=== PATIENT | male | born 1940 | race Caucasian/White ===

== ENCOUNTER 2020-05-16 16:45 | Inpatient (IN) | payer MEDICARE, BC ==
[2020-05-16] MEDS ORDERED: HYDROmorphone 0.5 MG/0.5 ML Syringe IVPUSH PRN (17:41)
[2020-05-16] MEDS ORDERED: Ondansetron 4 MG Tab.DIS PO PRN (17:41)
--- NOTE | 2020-05-16 17:46 | PCM.HP.2 ---
H&P History of Present Illness - General Date of Service: 05/16/20 Admit Problem/Dx: Admission Diagnosis/Problem Admission Diagnosis/Problem Cellulitis of right foot Source of Information: Patient, Provider History Limitations: Reports: No Limitations - History of Present Illness Initial Comments - Free Text/Narative: CC: I thought I had COVID HPI: Regis who was transferred from the emergency room in [place] to our hospital for direct admission and management of right lower extremity cellulitis and possibly osteomyelitis. He reports several days of progressive decrease in energy and appetite as well as increasing redness, pain and swelling of his right foot. He has had temperatures as high as 102 degrees at home and has had some shaking chills. He does report sinus drainage which causes him to cough occasionally. He does not feel short of breath and has not had chest pain. No change in bowel or bladder habits. He has not been eating or drinking well the past few days. He is not aware of any injury to his foot. He is complaining of intermittent sharp and severe stabbing pains that shoot through his foot. They seem to come and go without any obvious trigger. He is tried a variety of home remedies which have not helped the pain very much. Pain has been getting worse over the past several days. He does not have any known exposure to COVID but has been frequenting establishments where folks are not wearing masks. In the emergency room in [place] he was noted to have a white blood cell count of 19,000 as well as an elevated procalcitonin and a very elevated CRP. Chest x-ray was clear and COVID19 testing was negative. X-ray of the right foot showed some possible inflammatory or potentially infectious/osteomyelitis changes at the first MTP. IV antibiotics were initiated and the patient was transferred here for further management because they were at capacity. - Related Data Allergies/Adverse Reactions: Allergies Allergy/AdvReac Type Severity Reaction Status Date / Time Penicillins Allergy Itching Verified 05/16/20 16:53 Sulfa (Sulfonamide Allergy Itching Verified 05/16/20 16:53 Antibiotics) Home Medications: Home Meds Amitriptyline [Elavil] 25 mg PO BEDTIME 05/16/20 [History] Apixaban [Eliquis] 5 mg PO BID 05/16/20 [History] Gabapentin [Neurontin] 600 mg PO TID 05/16/20 [History] Red Yeast Rice 1,200 mg PO BID 05/16/20 [History] lisinopriL [Lisinopril] 10 mg PO BEDTIME 05/16/20 [History] metFORMIN [Glucophage XR] 1,000 mg PO BID 05/16/20 [History] Past Medical History Musculoskeletal History: Reports: Other (See Below) Other Musculoskeletal History: osteomyelitis Neurological History: Reports: Neuropathy, Diabetic Endocrine/Metabolic History: Reports: Diabetes, Type II Dermatologic History: Reports: Cellulitis - Past Surgical History HEENT Surgical History: Reports: Naso-Sinus Surgery Endocrine Surgical History: Reports: None Neurological Surgical History: Reports: None Dermatological Surgical History: Reports: None Social & Family History - Family History Family Medical History: Noncontributory - Tobacco Use Smoking Status *Q: Former Smoker Years of Tobacco use: 22 Used Tobacco, but Quit: Yes Month/Year Tobacco Last Used: 1970 Second Hand Smoke Exposure: No - Caffeine Use Caffeine Use: Reports: Coffee - Alcohol Use Number of Drinks Per Day: 0 - Recreational Drug Use Recreational Drug Use: No H&P Review of Systems - Review of Systems: Review Of Systems: See Below Free Text/Narrative: A complete 12 point review of systems was obtained. Pertinent positives and negatives are noted in the history of present illness. All other systems were reviewed and were negative except as noted. Exam - Exam Exam: See Below - Vital Signs Vital Signs: Last Vital Signs Temp 37.7 C 05/16/20 16:52 Pulse 88 05/16/20 16:52 Resp 18 05/16/20 16:52 BP 136/69 05/16/20 16:52 Pulse Ox 96 05/16/20 16:52 Weight: 101.605 kg - Exam Quality Assessment: No: Supplemental Oxygen General: Alert, Oriented, Cooperative. No: Mild Distress HEENT: Conjunctiva Clear. No: Mucosa Moist & [place] (dry), Scleral Icterus Neck: Supple, Trachea Midline Lungs: Clear to Auscultation, Normal Respiratory Effort Cardiovascular: Regular Rate, Regular Rhythm, Systolic Murmur GI/Abdominal Exam: Normal Bowel Sounds, Soft, Non-Tender, No Distention, Other (Ventral hernia) Back Exam: Normal Inspection, Full Range of Motion Extremities: No Pedal Edema (Of the left foot), Pedal Edema (Of the right foot), Increased Warmth (Right foot and right lower leg from about mid garza distally) Peripheral Pulses: 1+: Dorsalis Pedis (R), 2+: Dorsalis Pedis (L) Skin: Warm, Dry, Rash (Significant erythema over the top of the right foot extending onto the right great toe. Redness does extend up the distal lower leg onto the lower garza), Other (There is an area of fluctuance and possibly an underlying abscess between the first and second toes on the dorsal aspect of the foot) Neuro Extensive - Mental Status: Alert, Oriented x3, Nl Response to Commands Neuro Extensive - Motor, Sensory, Reflexes: No: Dysarthria, Abnormal Motor, Tremor Psychiatric: Alert, Normal Affect - Patient Data Imaging Impressions Last 24 hrs: Chest x-ray-clear X-ray of the right foot-possible inflammatory/erosive changes at the first MTP Sepsis Event Note - Evaluation Sepsis Screening Result: No Definite Risk - Focused Exam Vital Signs: Vital Signs Temp Pulse Resp BP Pulse Ox 05/16/20 16:52 37.7 C 88 18 136/69 96 *Q Meaningful Use (ADM) - VTE Risk Assess *Q Each Risk Factor Represents 1 Point: Obesity ( BMI > 25 kg/m2), Sepsis Total Score 1 Point Risk Factors: 2 Each Risk Factor Represents 2 Points: None Total Score 2 Point Risk Factors: 0 Each Risk Factor Represents 3 Points: Age 75 Years or Greater Total Score 3 Point Risk Factors: 3 Each Risk Factor Represents 5 Points: None Total Score 5 Point Risk Factors: 0 Venous Thromboembolism Risk Factor Score *Q: 5 - Problem List (1) Cellulitis of foot, right SNOMED Code(s): 870927718 ICD Code: L03.115 - CELLULITIS OF RIGHT LOWER LIMB Status: Acute Current Visit: Yes (2) Sepsis SNOMED Code(s): 31717802 ICD Code: A41.9 - SEPSIS, UNSPECIFIED ORGANISM Status: Acute Current Visit: Yes Qualifiers: Sepsis type: sepsis due to unspecified organism Sepsis acute organ dysfunction status: without acute organ dysfunction Qualified Code(s): A41.9 - Sepsis, unspecified organism (3) Type 2 diabetes mellitus SNOMED Code(s): 20943112 ICD Code: E11.9 - TYPE 2 DIABETES MELLITUS WITHOUT COMPLICATIONS Status: Chronic Current Visit: Yes Qualifiers: Diabetes mellitus predatory animal exterminator insulin use: without predatory animal exterminator use Diabetes mellitus complication status: with neurologic complications Diabetes mellitus complication detail: with polyneuropathy Qualified Code(s): E11.42 - Type 2 diabetes mellitus with diabetic polyneuropathy (4) Chronic atrial fibrillation SNOMED Code(s): 263137754 ICD Code: I48.20 - CHRONIC ATRIAL FIBRILLATION, UNSPECIFIED Status: Chronic Current Visit: Yes Problem List Initiated/Reviewed/Updated: Yes Orders Last 24hrs: Active Orders 24 hr Category Date Time Status Patient Status [ADT] Routine ADT 05/16/20 17:41 Ordered Communication Order [RC] PRN Care 05/16/20 17:45 Ordered Communication Order [RC] PRN Care 05/16/20 17:45 Ordered Diabetes Education [RC] Click to Edit Care 05/16/20 17:45 Ordered Intake and Output [RC] QSHIFT Care 05/16/20 17:41 Ordered Notify Provider Vital Signs [RC] ASDIRECTED Care 05/16/20 17:41 Ordered Notify Provider [RC] PRN Care 05/16/20 17:45 Ordered Oxygen Therapy [RC] PRN Care 05/16/20 17:41 Ordered Up With Assistance [RC] ASDIRECTED Care 05/16/20 17:41 Ordered VTE/DVT Education [RC] Per Unit Routine Care 05/16/20 17:41 Ordered Vital Signs [RC] Q4H Care 05/16/20 17:41 Ordered Consistent Carbohydrate Diet [DIET] Diet 05/16/20 Dinner Ordered Foot wo Cont Rt [MR] Routine Exams 05/17/20 07:00 Ordered BASIC METABOLIC PANEL,BMP [CHEM] AM Lab 05/17/20 05:11 Ordered CBC W/O DIFF,HEMOGRAM [HEME] AM Lab 05/17/20 05:11 Ordered GLUCOSE POC LAB TO COLLECT JPM [POC] QIDACANDBED Lab 05/16/20 21:00 Ordered GLUCOSE POC LAB TO COLLECT JPM [POC] QIDACANDBED Lab 05/17/20 07:30 Ordered GLUCOSE POC LAB TO COLLECT JPM [POC] QIDACANDBED Lab 05/17/20 11:30 Ordered GLUCOSE POC LAB TO COLLECT JPM [POC] QIDACANDBED Lab 05/17/20 16:30 Ordered GLUCOSE POC LAB TO COLLECT JPM [POC] QIDACANDBED Lab 05/17/20 21:00 Ordered GLUCOSE POC LAB TO COLLECT JPM [POC] QIDACANDBED Lab 05/18/20 07:30 Ordered GLUCOSE POC LAB TO COLLECT JPM [POC] QIDACANDBED Lab 05/18/20 11:30 Ordered GLUCOSE POC LAB TO COLLECT JPM [POC] QIDACANDBED Lab 05/18/20 16:30 Ordered GLUCOSE POC LAB TO COLLECT JPM [POC] QIDACANDBED Lab 05/18/20 21:00 Ordered GLUCOSE POC LAB TO COLLECT JPM [POC] QIDACANDBED Lab 05/19/20 07:30 Ordered GLUCOSE POC LAB TO COLLECT JPM [POC] QIDACANDBED Lab 05/19/20 11:30 Ordered GLUCOSE POC LAB TO COLLECT JPM [POC] QIDACANDBED Lab 05/19/20 16:30 Ordered GLUCOSE POC LAB TO COLLECT JPM [POC] QIDACANDBED Lab 05/19/20 21:00 Ordered GLUCOSE POC LAB TO COLLECT JPM [POC] QIDACANDBED Lab 05/20/20 07:30 Ordered GLUCOSE POC LAB TO COLLECT JPM [POC] QIDACANDBED Lab 05/20/20 11:30 Ordered GLUCOSE POC LAB TO COLLECT JPM [POC] QIDACANDBED Lab 05/20/20 16:30 Ordered GLUCOSE POC LAB TO COLLECT JPM [POC] QIDACANDBED Lab 05/20/20 21:00 Ordered GLUCOSE POC LAB TO COLLECT JPM [POC] QIDACANDBED Lab 05/21/20 07:30 Ordered GLUCOSE POC LAB TO COLLECT JPM [POC] QIDACANDBED Lab 05/21/20 11:30 Ordered GLUCOSE POC LAB TO COLLECT JPM [POC] QIDACANDBED Lab 05/21/20 16:30 Ordered GLUCOSE POC LAB TO COLLECT JPM [POC] QIDACANDBED Lab 05/21/20 21:00 Ordered GLUCOSE POC LAB TO COLLECT JPM [POC] QIDACANDBED Lab 05/22/20 07:30 Ordered GLUCOSE POC LAB TO COLLECT JPM [POC] QIDACANDBED Lab 05/22/20 11:30 Ordered GLUCOSE POC LAB TO COLLECT JPM [POC] QIDACANDBED Lab 05/22/20 16:30 Ordered Acetaminophen [TylenoL] Med 05/16/20 17:41 Ordered 650 mg PO Q4H PRN Amitriptyline [Elavil] Med 05/16/20 21:00 Ordered 25 mg PO BEDTIME Apixaban [Eliquis] Med 05/16/20 21:00 Ordered 5 mg PO BID Docusate Sodium/Sennosides [Senna Plus] Med 05/16/20 17:41 Ordered 1 tab PO BID PRN Gabapentin [Neurontin] Med 05/16/20 21:00 Ordered 600 mg PO TID HYDROmorphone [Dilaudid] Med 05/16/20 17:41 Ordered 0.5 mg IVPUSH Q2H PRN Insulin Lispro [HumaLOG] Med 05/16/20 20:00 Ordered See Protocol SUBCUT QIDACANDBED LORazepam [Ativan] Med 05/16/20 17:41 Ordered 0.5 mg IVPUSH Q4H PRN Lactobacillus Rhamnosus GG [Culturelle] Med 05/16/20 21:00 Ordered 1 cap PO BID Magnesium Hydroxide [Milk of Magnesia] Med 05/16/20 17:41 Ordered 30 ml PO Q12H PRN Ondansetron [Zofran ODT] Med 05/16/20 17:41 Ordered 4 mg PO Q6H PRN Ondansetron [Zofran] Med 05/16/20 17:41 Ordered 4 mg IV Q6H PRN Sodium Chloride 0.9% [Normal Saline] 1,000 ml Med 05/16/20 17:45 Ordered IV ASDIRECTED Vancomycin 1.5 gm Med 05/17/20 02:00 Ordered Sodium Chloride 0.9% [Normal Saline] 250 ml IV Q12H cefTAZidime Pentahydrate [Fortaz] 1 gm Med 05/16/20 22:00 Ordered Sodium Chloride 0.9% [Normal Saline] 50 ml IV Q8HR lisinopriL [Prinivil] Med 05/16/20 21:00 Ordered 10 mg PO BEDTIME metFORMIN [Glucophage XR] Med 05/16/20 21:00 Ordered 1,000 mg PO BID oxyCODONE Med 05/16/20 17:41 Ordered 5 - 10 mg PO Q4H PRN Resuscitation Status Routine Resus Stat 05/16/20 17:41 Ordered Assessment/Plan Comment:: ASSESSMENT AND PLAN - Cellulitis of the right foot-he may have an underlying abscess on the dorsal aspect of the foot between the first and second toe. X-ray at the outside emergency room possibly suggested underlying osteomyelitis. He has significant leukocytosis and did have evidence for early sepsis in [place] including tachycardia. He has responded to fluids and has received antibiotics. -Antibiotic coverage with ceftazidime and vancomycin -MRI of the right foot in the morning -Surgical consultation with Dr. Lora for evaluation of the possible abscess -Gentle fluids overnight -Pain control Type 2 diabetes mellitus-he did have some hyperglycemia on arrival to the emergency room. He is on only metformin. -Continue home medications -Low-dose sliding scale insulin with his hyperglycemia probably related to the infection Chronic atrial fibrillation-currently rate controlled. -Continue rate control and systemic anticoagulation Maintenance issues - - DVT prophylaxis -apixaban - GI prophylaxis -not indicated - Nutrition -consistent carbohydrates - Junior catheter -not indicated CODE STATUS -full code Admission justification -this patient will be admitted for inpatient services and is medically appropriate meeting medical necessity for inpatient admission as outlined in my documentation. I reasonably expect the patient will require inpatient services that span a period time over 2 midnights. I reasonably expect this patient to be discharged or transferred within 96 hours [facility]. Disposition -I would anticipate discharge home after the hospital stay Primary care physician - Dr Vero Figueredo M.D. - Mortality Measure Prognosis:: Good
[2020-05-16] MEDS: Sodium Chloride 0.9% 1,000 ML IV SCH (18:09)
[2020-05-16] MEDS: Acetaminophen 325 MG Tab PO PRN (19:36)
[2020-05-16] MEDS: oxyCODONE 5 MG Tab PO PRN (19:37)
[2020-05-16] MEDS: Gabapentin 300 MG Cap PO SCH (22:19)
[2020-05-16] MEDS: metFORMIN 500 MG Tab PO SCH (22:20)
[2020-05-16] MEDS: Lactobacillus Rhamnosus GG (Probiotic) Cap PO SCH (22:21)
[2020-05-16] MEDS: Apixaban 5 MG Tab PO SCH (22:21)
[2020-05-16] MEDS: Insulin Lispro 100 Unit/ML 3 ML KwikPen SUBCUT SCH (22:25)
[2020-05-16] MEDS: Lisinopril 10 MG Tab PO SCH (22:48)
[2020-05-16] MEDS: Amitriptyline 25 MG Tab PO SCH (22:48)
[2020-05-17] MEDS: Sodium Chloride 0.9% 1,000 ML IV SCH (05:42)
[2020-05-17] MEDS: Acetaminophen 325 MG Tab PO PRN ×3 (06:12→17:47)
[2020-05-17] MEDS: Gabapentin 300 MG Cap PO SCH ×3 (08:00→21:22)
[2020-05-17] MEDS: metFORMIN 500 MG Tab PO SCH ×2 (08:34→21:22)
[2020-05-17] MEDS: Apixaban 5 MG Tab PO SCH ×2 (08:34→21:22)
[2020-05-17] MEDS: Lactobacillus Rhamnosus GG (Probiotic) Cap PO SCH ×2 (08:34→21:22)
[2020-05-17] MEDS: Insulin Lispro 100 Unit/ML 3 ML KwikPen SUBCUT SCH ×4 (08:35→21:22)
[2020-05-17] MEDS ORDERED: Lidocaine 1% 20 ML MDV INJECT ONE (09:00)
[2020-05-17] MEDS ORDERED: Gadoteridol 279.3 MG/ML 20 ML SDV IV SCH (10:00)
[2020-05-17] MEDS: Magnesium Hydroxide 400 MG/5 ML Susp 30 ML Cup PO PRN (10:57)
[2020-05-17] MEDS: oxyCODONE 5 MG Tab PO PRN (11:41)
--- NOTE | 2020-05-17 12:54 | OR ---
DATE OF PROCEDURE: 05/17/2020 SURGEON: Alvaro Lora MD PROCEDURE: Incision and drainage of fluid collection, right foot between toes 1 and 2 in the web space. COMPLICATIONS: None. DOG LICENSE OFFICER SUPERVISOR: None. ANESTHETIC: Local lidocaine without epinephrine. RISKS: Risks, benefits, alternatives, and limitations including, but not limited to infection, bleeding, along with cellulitis and sepsis. PROCEDURE IN DETAIL: The patient was placed in supine position. The area of fluctuance was identified. This was anesthetized with 1% lidocaine and was opened using an 11 blade and subsequent [place]is clamp. Clear thick fluid was noted consistent with pustulant material, however, this was cultured and removed. This was then sent for culture. Quarter-inch iodoform packing was then placed. Dressings were applied. The patient tolerated the procedure well. Alvaro Lora MD /[id number]
--- NOTE | 2020-05-17 13:46 | CONS ---
DATE OF SERVICE: 05/17/2020 REFERRING PHYSICIAN: CONSULTING PHYSICIAN: Alvaro Lora MD REASON FOR CONSULTATION: Right foot infection. HISTORY OF PRESENT ILLNESS: This is a gentleman who was transferred from [place] yesterday and admitted to the hospitalist service. The concern at this time is cellulitis of the right lower leg. The patient has been febrile with up to 102 degrees. No nausea or vomiting. He is a known diabetic. He also had an elevated CRP and elevated white blood cell count. The patient is currently on vancomycin. PAST MEDICAL HISTORY: Type 2 diabetes, neuropathy, history of osteomyelitis. He is a remote smoker but not currently smoking. REVIEW OF SYSTEMS: GENERAL: The patient is appropriate for condition. HEENT: He is hard of hearing. CARDIOVASCULAR: Regular rhythm and rate. RESPIRATORY: Lungs clear to auscultation bilaterally. ABDOMEN: Obese. EXTREMITIES: Reports pain of right foot. NEUROLOGIC: no issues. PSYCHIATRIC: No issues. The remainder of systems were reviewed and is negative. SOCIAL HISTORY: He is not a smoker as described above. PHYSICAL EXAMINATION: GENERAL: The patient is resting comfortably. VITAL SIGNS: Temperature 99.9, blood pressure 117/62, pulse 73, respirations 18. HEENT: Pupils are equal. NECK: Supple. LUNGS: Clear. ABDOMEN: Obese. EXTREMITIES: Right lower extremity shows inflammation and erythema concerning for infection. IMAGING DATA: I did review this and MRI is also still pending. ASSESSMENT: Cellulitis, right foot. PLAN: Continue IV antibiotics. We will incise and drain the fluctuant area between the toes #1 and #2 and send for culture. Alvaro Lora MD /[id number]
--- NOTE | 2020-05-17 13:57 | CRLMR ---
HISTORY: Right foot swelling and redness. Concern for osteomyelitis of the great toe. TECHNIQUE: Axial, sagittal and coronal T1, T2 fat-sat and T1 postcontrast images with fat saturation were acquired. COMPARISON: No prior. FINDINGS: There is generalized soft tissue edema involving the foot. Increased enhancement is noted involving portions of the forefoot compatible with cellulitis. There is no well-defined fluid collection specific for a soft tissue abscess. No osteomyelitis. There are degenerative changes of the 1st metatarsophalangeal joint. Degenerative arthrosis of the navicular cuneiform and several tarsal - metatarsal articulations. There are areas of subchondral marrow edema cystic change related to full-thickness grade 4 cartilage loss. Small amount of fluid within the intermetatarsal bursae. The plantar aponeurosis at the forefoot level is intact. No Gooden`s neuroma. IMPRESSION: 1. Areas of increased enhancement involving the forefoot compatible with cellulitis. 2. No well-defined soft tissue fluid collection. 3. No osteomyelitis. 4. Degenerative changes. Dictated by Arturo Olivares MD @ May 17 2020 1:51PM Signed by Dr. Arturo Olivares @ May 17 2020 1:55PM
--- NOTE | 2020-05-17 14:45 | PCM.PN ---
- General Info Date of Service: 05/17/20 Subjective Update: No acute events overnight. Patient did have a fever to 102. Foot is feeling a little better with less pain and less swelling. Heart rate has been in the normal range. The fluid collection on the bottom of his foot did spontaneously rupture this morning with drainage of bloody and some purulent material. It was further debrided by Dr. Lora and iodoform gauze was packed in there. A sample was sent for culture. Overall he is feeling better today. We did get an MRI which did not show any evidence for osteomyelitis. White count is slightly better today. Functional Status: Reports: Pain Controlled, Tolerating Diet - Review of Systems General: Reports: Fever Musculoskeletal: Reports: Foot Pain - Patient Data Vitals - Most Recent: Last Vital Signs Temp 36.9 C 05/17/20 12:11 Pulse 70 05/17/20 11:00 Resp 16 05/17/20 11:00 BP 129/59 L 05/17/20 11:00 Pulse Ox 94 L 05/17/20 11:00 Weight - Most Recent: 101.605 kg I&O - Last 24 Hours: Intake & Output 05/16/20 05/17/20 05/17/20 22:59 06:59 14:59 Intake Total 1596 360 Balance 1596 360 Lab Results Last 24 Hours: Laboratory Results - last 24 hr 05/16/20 05/17/20 05/17/20 Range/Units 21:00 05:35 05:35 WBC 16.7 H (4.5-11.0) K/uL RBC 4.36 (4.30-5.90) M/uL Hgb 12.4 (12.0-15.0) g/dL Hct 38.5 L (40.0-54.0) % MCV 88 (80-98) fL MCH 28 (27-31) pg MCHC 32 (32-36) % Plt Count 148 L (150-400) K/uL Sodium 135 L (140-148) mmol/L Potassium 4.3 (3.6-5.2) mmol/L Chloride 100 (100-108) mmol/L Carbon Dioxide 25 (21-32) mmol/L Anion Gap 14.3 H (5.0-14.0) mmol/L BUN 21 H (7-18) mg/dL Creatinine 1.2 (0.8-1.3) mg/dL Est Cr Clr Drug Dosing 53.16 mL/min Estimated GFR (MDRD) 58 L (>60) Glucose 189 H (74-106) mg/dL POC Glucose 238 H (74-106) MG/DL Calcium 8.5 (8.5-10.1) mg/dL 05/17/20 05/17/20 Range/Units 07:50 11:45 WBC (4.5-11.0) K/uL RBC (4.30-5.90) M/uL Hgb (12.0-15.0) g/dL Hct (40.0-54.0) % MCV (80-98) fL MCH (27-31) pg MCHC (32-36) % Plt Count (150-400) K/uL Sodium (140-148) mmol/L Potassium (3.6-5.2) mmol/L Chloride (100-108) mmol/L Carbon Dioxide (21-32) mmol/L Anion Gap (5.0-14.0) mmol/L BUN (7-18) mg/dL Creatinine (0.8-1.3) mg/dL Est Cr Clr Drug Dosing mL/min Estimated GFR (MDRD) (>60) Glucose (74-106) mg/dL POC Glucose 213 H 214 H (74-106) MG/DL Calcium (8.5-10.1) mg/dL Kenneth Results Last 24 Hours: Microbiology 05/17/20 09:37 Gram Stain - Final Foot, Right Med Orders - Current: Current Medications Acetaminophen (Tylenol) 650 mg PO Q4H PRN PRN Reason: Pain (Mild 1-3)/fever Last Admin: 05/17/20 11:41 Dose: 650 mg Documented by: Amitriptyline HCl (Elavil) 25 mg PO BEDTIME [facility] Last Admin: 05/16/20 22:48 Dose: 25 mg Documented by: Apixaban (Eliquis) 5 mg PO BID [facility] Last Admin: 05/17/20 08:34 Dose: 5 mg Documented by: Gabapentin (Neurontin) 600 mg PO TID [facility] Last Admin: 05/17/20 13:28 Dose: 600 mg Documented by: Gadoteridol (Prohance) 20 ml IV . DIRECTED [facility] Stop: 05/17/20 18:00 Last Admin: 05/17/20 10:10 Dose: 20 ml Documented by: Hydromorphone HCl (Dilaudid) 0.5 mg IVPUSH Q2H PRN PRN Reason: Pain (severe 7-10) Ceftazidime 1 gm/ Sodium (Chloride) 50 mls @ 100 mls/hr IV Q8HR [facility] Last Admin: 05/17/20 13:20 Dose: 100 mls/hr Documented by: Vancomycin HCl 1.5 gm/ Sodium (Chloride) 250 mls @ 150 mls/hr IV Q12H [facility] Last Admin: 05/17/20 14:06 Dose: 150 mls/hr Documented by: Sodium Chloride (Normal Saline) 1,000 mls @ 25 mls/hr IV ASDIRECTED [facility] Insulin Human Lispro (Humalog) 0 unit SUBCUT QIDACANDBED [facility]; Protocol Last Admin: 05/17/20 13:22 Dose: 2 units Documented by: Lactobacillus Rhamnosus (Culturelle) 1 cap PO BID [facility] Last Admin: 05/17/20 08:34 Dose: 1 cap Documented by: Lisinopril (Prinivil) 10 mg PO BEDTIME [facility] Last Admin: 05/16/20 22:48 Dose: 10 mg Documented by: Lorazepam (Ativan) 0.5 mg IVPUSH Q4H PRN PRN Reason: Nausea/Vomiting Magnesium Hydroxide (Milk Of Magnesia) 30 ml PO Q12H PRN PRN Reason: Constipation Last Admin: 05/17/20 10:57 Dose: 30 ml Documented by: Metformin HCl (Glucophage) 1,000 mg PO BID [facility] Last Admin: 05/17/20 08:34 Dose: 1,000 mg Documented by: Ondansetron HCl (Zofran) 4 mg IV Q6H PRN PRN Reason: Nausea/Vomiting Ondansetron HCl (Zofran Odt) 4 mg PO Q6H PRN PRN Reason: Nausea able to take PO Last Admin: 05/16/20 19:37 Dose: 4 mg Documented by: Oxycodone HCl (Oxycodone) 5 - 10 mg PO Q4H PRN PRN Reason: Pain Last Admin: 05/17/20 11:41 Dose: 10 mg Documented by: Senna/Docusate Sodium (Senna Plus) 1 tab PO BID PRN PRN Reason: Constipation Last Admin: 05/17/20 10:57 Dose: 1 tab Documented by: Discontinued Medications Sodium Chloride (Normal Saline) 1,000 mls @ 100 mls/hr IV ASDIRECTED [facility] Last Admin: 05/17/20 05:42 Dose: 100 mls/hr Documented by: Lidocaine HCl (Xylocaine 1%) 20 ml INJECT ONETIME ONE Stop: 05/17/20 09:01 Last Admin: 05/17/20 09:32 Dose: 20 ml Documented by: - Exam Quality Assessment: No: Supplemental Oxygen General: Alert, Oriented, Cooperative, No Acute Distress Lungs: Normal Respiratory Effort. No: Wheezing Cardiovascular: Regular Rate, Regular Rhythm GI/Abdominal Exam: Soft, No Distention Extremities: Pedal Edema (right foot ), Increased Warmth (right foot and lower leg ) Skin: Warm, Dry Psy/Mental Status: Alert, Normal Affect Sepsis Event Note - Evaluation Sepsis Screening Result: Sepsis Risk - Focused Exam Vital Signs: Vital Signs Temp Temp Pulse Resp BP Pulse Ox 05/17/20 12:11 36.9 C 05/17/20 11:00 38.2 C H 70 16 129/59 L 94 L 05/17/20 07:00 37.7 C 93 18 117/62 94 L 05/17/20 06:42 37.3 C 05/17/20 06:12 100.5 C H 05/17/20 03:09 36.7 C 74 18 122/55 L 95 - Problem List & Annotations (1) Cellulitis of foot, right SNOMED Code(s): 953757555 Code(s): L03.115 - CELLULITIS OF RIGHT LOWER LIMB Status: Acute Current Visit: Yes (2) Abscess of right foot SNOMED Code(s): 13603766719922865 Code(s): L02.611 - CUTANEOUS ABSCESS OF RIGHT FOOT Status: Acute Current Visit: Yes (3) Sepsis SNOMED Code(s): 93546571 Code(s): A41.9 - SEPSIS, UNSPECIFIED ORGANISM Status: Acute Current Visit: Yes Qualifiers: Sepsis type: sepsis due to unspecified organism Sepsis acute organ dysfunction status: without acute organ dysfunction Qualified Code(s): A41.9 - Sepsis, unspecified organism (4) Type 2 diabetes mellitus SNOMED Code(s): 26694975 Code(s): E11.9 - TYPE 2 DIABETES MELLITUS WITHOUT COMPLICATIONS Status: Chronic Current Visit: Yes Qualifiers: Diabetes mellitus rodent exterminator insulin use: without rodent exterminator use Diabetes mellitus complication status: with neurologic complications Diabetes mellitus complication detail: with polyneuropathy Qualified Code(s): E11.42 - Type 2 diabetes mellitus with diabetic polyneuropathy (5) Chronic atrial fibrillation SNOMED Code(s): 896699799 Code(s): I48.20 - CHRONIC ATRIAL FIBRILLATION, UNSPECIFIED Status: Chronic Current Visit: Yes - Problem List Review Problem List Initiated/Reviewed/Updated: Yes - My Orders Last 24 Hours: My Active Orders 05/16/20 Dinner Consistent Carbohydrate Diet [DIET] 05/16/20 17:41 Patient Status [ADT] Routine Intake and Output [RC] QSHIFT Notify Provider Vital Signs [RC] ASDIRECTED Oxygen Therapy [RC] PRN Up With Assistance [RC] ASDIRECTED VTE/DVT Education [RC] Per Unit Routine Vital Signs [RC] Q4H Acetaminophen [TylenoL] 650 mg PO Q4H PRN Docusate Sodium/Sennosides [Senna Plus] 1 tab PO BID PRN HYDROmorphone [Dilaudid] 0.5 mg IVPUSH Q2H PRN LORazepam [Ativan] 0.5 mg IVPUSH Q4H PRN Magnesium Hydroxide [Milk of Magnesia] 30 ml PO Q12H PRN Ondansetron [Zofran ODT] 4 mg PO Q6H PRN Ondansetron [Zofran] 4 mg IV Q6H PRN oxyCODONE 5 - 10 mg PO Q4H PRN Resuscitation Status Routine 05/16/20 17:45 Communication Order [RC] PRN Communication Order [RC] PRN Diabetes Education [RC] Click to Edit Notify Provider [RC] PRN 05/16/20 20:00 Insulin Lispro [HumaLOG] See Protocol SUBCUT QIDACANDBED 05/16/20 21:00 Amitriptyline [Elavil] 25 mg PO BEDTIME Apixaban [Eliquis] 5 mg PO BID Gabapentin [Neurontin] 600 mg PO TID Lactobacillus Rhamnosus GG [Culturelle] 1 cap PO BID lisinopriL [Prinivil] 10 mg PO BEDTIME metFORMIN [Glucophage] 1,000 mg PO BID 05/16/20 22:00 cefTAZidime Pentahydrate [Fortaz] 1 gm Sodium Chloride 0.9% [Normal Saline] 50 ml IV Q8HR 05/17/20 02:00 Vancomycin 1.5 gm Sodium Chloride 0.9% [Normal Saline] 250 ml IV Q12H 05/17/20 08:30 Notify Provider Consults [RC] ASDIRECTED Consult to Physician [CONS] Routine 05/17/20 10:00 Gadoteridol [ProHance] 20 ml IV . DIRECTED 05/17/20 15:00 Sodium Chloride 0.9% [Normal Saline] 1,000 ml IV ASDIRECTED 05/17/20 16:30 GLUCOSE POC LAB TO COLLECT JPM [POC] QIDACANDBED 05/17/20 21:00 GLUCOSE POC LAB TO COLLECT JPM [POC] QIDACANDBED 05/18/20 05:00 BASIC METABOLIC PANEL,BMP [CHEM] Timed CBC W/O DIFF,HEMOGRAM [HEME] Timed (1) 05/18/20 07:30 GLUCOSE POC LAB TO COLLECT JPM [POC] QIDACANDBED 05/18/20 11:30 GLUCOSE POC LAB TO COLLECT JPM [POC] QIDACANDBED 05/18/20 16:30 GLUCOSE POC LAB TO COLLECT JPM [POC] QIDACANDBED 05/18/20 21:00 GLUCOSE POC LAB TO COLLECT JPM [POC] QIDACANDBED 05/19/20 07:30 GLUCOSE POC LAB TO COLLECT JPM [POC] QIDACANDBED 05/19/20 11:30 GLUCOSE POC LAB TO COLLECT JPM [POC] QIDACANDBED 05/19/20 16:30 GLUCOSE POC LAB TO COLLECT JPM [POC] QIDACANDBED 05/19/20 21:00 GLUCOSE POC LAB TO COLLECT JPM [POC] QIDACANDBED 05/20/20 07:30 GLUCOSE POC LAB TO COLLECT JPM [POC] QIDACANDBED 05/20/20 11:30 GLUCOSE POC LAB TO COLLECT JPM [POC] QIDACANDBED 05/20/20 16:30 GLUCOSE POC LAB TO COLLECT JPM [POC] QIDACANDBED 05/20/20 21:00 GLUCOSE POC LAB TO COLLECT JPM [POC] QIDACANDBED 05/21/20 07:30 GLUCOSE POC LAB TO COLLECT JPM [POC] QIDACANDBED 05/21/20 11:30 GLUCOSE POC LAB TO COLLECT JPM [POC] QIDACANDBED 05/21/20 16:30 GLUCOSE POC LAB TO COLLECT JPM [POC] QIDACANDBED 05/21/20 21:00 GLUCOSE POC LAB TO COLLECT JPM [POC] QIDACANDBED 05/22/20 07:30 GLUCOSE POC LAB TO COLLECT JPM [POC] QIDACANDBED 05/22/20 11:30 GLUCOSE POC LAB TO COLLECT JPM [POC] QIDACANDBED 05/22/20 16:30 GLUCOSE POC LAB TO COLLECT JPM [POC] QIDACANDBED - Plan Plan:: ASSESSMENT AND PLAN - Cellulitis and abscess of the right foot with sepsis-sepsis has resolved. Abscess was debrided and sample sent for culture. Gram-positive cocci and gram- negative rods were noted on the Gram stain. MRI negative for osteomyelitis. White count better. Still having fevers but clinically doing better. -Antibiotic coverage with ceftazidime and vancomycin -Surgical consultation with Dr. Lora -IV fluids at to keep open -Pain control Type 2 diabetes mellitus-mild hyperglycemia but blood sugars slowly trending down. -Continue home medications -Low-dose sliding scale insulin with his hyperglycemia probably related to the infection Chronic atrial fibrillation-currently rate controlled. -Continue rate control and systemic anticoagulation Maintenance issues - - DVT prophylaxis -apixaban - GI prophylaxis -not indicated - Nutrition -consistent carbohydrates Disposition -I would anticipate discharge home with home care after the hospital stay Primary care physician - Dr Vero Figueredo M.D.
[2020-05-17] MEDS ORDERED: Sodium Chloride 0.9% 1,000 ML IV SCH (15:00)
[2020-05-17] MEDS: Amitriptyline 25 MG Tab PO SCH (21:22)
[2020-05-17] MEDS: Lisinopril 10 MG Tab PO SCH (21:23)
[2020-05-18] MEDS: Acetaminophen 325 MG Tab PO PRN ×2 (02:58→11:08)
[2020-05-18] MEDS: Insulin Lispro 100 Unit/ML 3 ML KwikPen SUBCUT SCH ×4 (08:30→21:29)
[2020-05-18] MEDS: Apixaban 5 MG Tab PO SCH ×3 (08:38→23:51)
[2020-05-18] MEDS: Lactobacillus Rhamnosus GG (Probiotic) Cap PO SCH ×3 (08:38→23:51)
[2020-05-18] MEDS: metFORMIN 500 MG Tab PO SCH ×3 (08:39→23:51)
[2020-05-18] MEDS: [UNRECOGNIZED DRUG - OTHER] PO SCH (08:40)
[2020-05-18] MEDS: Gabapentin 300 MG Cap PO SCH ×4 (08:40→23:51)
[2020-05-18] MEDS: [UNRECOGNIZED DRUG - OTHER] PO SCH (08:41)
[2020-05-18] MEDS ORDERED: Calcium Carbonate 500 MG Tab.Chew PO PRN (13:29)
--- NOTE | 2020-05-18 13:31 | PCM.PN ---
- General Info Date of Service: 05/18/20 Subjective Update: There were no acute events overnight. Patient did have a low-grade fever last night and had a little higher fever today. Otherwise he is feeling fairly well. Foot feels better with less twinges of shooting pain. Blood sugars are still moderately elevated but stable. White count is a little better today. Heart rate and blood pressure have been stable. Appetite is a little better. He does report some indigestion and occasional nausea. Seems to be worse after his pills. He had an uneventful dressing change on the right foot this morning. Cultures are still pending. Functional Status: Reports: Pain Controlled, Tolerating Diet - Review of Systems General: Reports: Fever, Weakness Gastrointestinal: Reports: Other (heartburn ) Musculoskeletal: Reports: Foot Pain - Patient Data Vitals - Most Recent: Last Vital Signs Temp 38.6 C H 05/18/20 13:02 Pulse 90 05/18/20 13:02 Resp 18 05/18/20 13:02 BP 154/78 H 05/18/20 13:02 Pulse Ox 95 05/18/20 10:41 Weight - Most Recent: 101.605 kg I&O - Last 24 Hours: Intake & Output 05/17/20 05/18/20 05/18/20 22:59 06:59 14:59 Intake Total 850 1487 Output Total 175 375 750 Balance 675 1112 -750 Lab Results Last 24 Hours: Laboratory Results - last 24 hr 05/17/20 05/17/20 05/18/20 Range/Units 16:30 21:00 04:10 WBC 17.0 H (4.5-11.0) K/uL RBC 4.31 (4.30-5.90) M/uL Hgb 12.0 (12.0-15.0) g/dL Hct 37.9 L (40.0-54.0) % MCV 88 (80-98) fL MCH 28 (27-31) pg MCHC 32 (32-36) % Plt Count 181 (150-400) K/uL Sodium (140-148) mmol/L Potassium (3.6-5.2) mmol/L Chloride (100-108) mmol/L Carbon Dioxide (21-32) mmol/L Anion Gap (5.0-14.0) mmol/L BUN (7-18) mg/dL Creatinine (0.8-1.3) mg/dL Est Cr Clr Drug Dosing mL/min Estimated GFR (MDRD) (>60) Glucose (74-106) mg/dL POC Glucose 199 H 229 H (74-106) MG/DL Calcium (8.5-10.1) mg/dL 05/18/20 05/18/20 05/18/20 Range/Units 04:10 07:52 11:38 WBC (4.5-11.0) K/uL RBC (4.30-5.90) M/uL Hgb (12.0-15.0) g/dL Hct (40.0-54.0) % MCV (80-98) fL MCH (27-31) pg MCHC (32-36) % Plt Count (150-400) K/uL Sodium 132 L (140-148) mmol/L Potassium 4.1 (3.6-5.2) mmol/L Chloride 99 L (100-108) mmol/L Carbon Dioxide 21 (21-32) mmol/L Anion Gap 16.1 H (5.0-14.0) mmol/L BUN 17 (7-18) mg/dL Creatinine 1.1 (0.8-1.3) mg/dL Est Cr Clr Drug Dosing 58.00 mL/min Estimated GFR (MDRD) > 60 (>60) Glucose 211 H (74-106) mg/dL POC Glucose 220 H 229 H (74-106) MG/DL Calcium 8.3 L (8.5-10.1) mg/dL Kenneth Results Last 24 Hours: Microbiology 05/17/20 09:37 Gram Stain - Final Foot, Right Wound Culture - Preliminary Med Orders - Current: Current Medications Acetaminophen (Tylenol) 650 mg PO Q4H PRN PRN Reason: Pain (Mild 1-3)/fever Last Admin: 05/18/20 11:08 Dose: 650 mg Documented by: Amitriptyline HCl (Elavil) 25 mg PO BEDTIME [facility] Last Admin: 05/17/20 21:22 Dose: 25 mg Documented by: Apixaban (Eliquis) 5 mg PO BID [facility] Last Admin: 05/18/20 08:38 Dose: 5 mg Documented by: Gabapentin (Neurontin) 600 mg PO TID [facility] Last Admin: 05/18/20 08:40 Dose: 600 mg Documented by: Hydromorphone HCl (Dilaudid) 0.5 mg IVPUSH Q2H PRN PRN Reason: Pain (severe 7-10) Ceftazidime 1 gm/ Sodium (Chloride) 50 mls @ 100 mls/hr IV Q8HR [facility] Last Admin: 05/18/20 05:16 Dose: 100 mls/hr Documented by: Vancomycin HCl 1.5 gm/ Sodium (Chloride) 250 mls @ 150 mls/hr IV Q12H [facility] Last Admin: 05/18/20 02:51 Dose: 150 mls/hr Documented by: Sodium Chloride (Normal Saline) 1,000 mls @ 25 mls/hr IV ASDIRECTED [facility] Last Admin: 05/18/20 07:15 Dose: 25 mls/hr Documented by: Insulin Human Lispro (Humalog) 0 unit SUBCUT QIDACANDBED [facility]; Protocol Last Admin: 05/18/20 12:00 Dose: 2 units Documented by: Lactobacillus Rhamnosus (Culturelle) 1 cap PO BID [facility] Last Admin: 05/18/20 08:38 Dose: 1 cap Documented by: Lisinopril (Prinivil) 10 mg PO BEDTIME [facility] Last Admin: 05/17/20 21:23 Dose: 10 mg Documented by: Lorazepam (Ativan) 0.5 mg IVPUSH Q4H PRN PRN Reason: Nausea/Vomiting Magnesium Hydroxide (Milk Of Magnesia) 30 ml PO Q12H PRN PRN Reason: Constipation Last Admin: 05/17/20 10:57 Dose: 30 ml Documented by: Metformin HCl (Glucophage) 1,000 mg PO BID [facility] Last Admin: 05/18/20 08:39 Dose: 1,000 mg Documented by: Ondansetron HCl (Zofran) 4 mg IV Q6H PRN PRN Reason: Nausea/Vomiting Ondansetron HCl (Zofran Odt) 4 mg PO Q6H PRN PRN Reason: Nausea able to take PO Last Admin: 05/16/20 19:37 Dose: 4 mg Documented by: Oxycodone HCl (Oxycodone) 5 - 10 mg PO Q4H PRN PRN Reason: Pain Last Admin: 05/17/20 11:41 Dose: 10 mg Documented by: Daily Multinutrient (Supplement (Ptom)) 1 each PO DAILY [facility] Last Admin: 05/18/20 08:40 Dose: 1 each Documented by: Vision Essentials (Gold (Ptom)) 4 each PO DAILY [facility] Last Admin: 05/18/20 08:41 Dose: 4 each Documented by: Senna/Docusate Sodium (Senna Plus) 1 tab PO BID PRN PRN Reason: Constipation Last Admin: 05/17/20 10:57 Dose: 1 tab Documented by: Discontinued Medications Gadoteridol (Prohance) 20 ml IV . DIRECTED [facility] Stop: 05/17/20 18:00 Last Admin: 05/17/20 10:10 Dose: 20 ml Documented by: Sodium Chloride (Normal Saline) 1,000 mls @ 100 mls/hr IV ASDIRECTED [facility] Last Admin: 05/17/20 05:42 Dose: 100 mls/hr Documented by: Lidocaine HCl (Xylocaine 1%) 20 ml INJECT ONETIME ONE Stop: 05/17/20 09:01 Last Admin: 05/17/20 09:32 Dose: 20 ml Documented by: - Exam Quality Assessment: No: Supplemental Oxygen General: Alert, Oriented, Cooperative, No Acute Distress Lungs: Normal Respiratory Effort Cardiovascular: Regular Rate, Regular Rhythm GI/Abdominal Exam: Soft, No Distention Extremities: No Pedal Edema, Increased Warmth (right lower leg and foot ), Other (right foot wrapped with kerlix and linette wrap ) Skin: Warm, Dry, Rash (erythema right ankle and dorsum of the foot ) Psy/Mental Status: Alert, Normal Affect Sepsis Event Note - Evaluation Sepsis Screening Result: No Definite Risk - Focused Exam Vital Signs: Vital Signs Temp Temp Pulse Resp BP Pulse Ox 05/18/20 13:02 38.6 C H 90 18 154/78 H 05/18/20 13:00 38.6 C H 05/18/20 11:08 38.6 C H 05/18/20 10:41 38.6 C H 101 H 18 161/74 H 95 05/18/20 08:45 36.9 C 92 17 159/73 H 95 05/18/20 07:19 37.2 C 80 18 150/70 H 97 05/18/20 03:28 37.2 C 05/18/20 02:58 38.3 C H 05/18/20 02:52 38.3 C H 98 18 149/77 H 93 L - Problem List & Annotations (1) Cellulitis of foot, right SNOMED Code(s): 340698657 Code(s): L03.115 - CELLULITIS OF RIGHT LOWER LIMB Status: Acute Current Visit: Yes (2) Abscess of right foot SNOMED Code(s): 30958701908884910 Code(s): L02.611 - CUTANEOUS ABSCESS OF RIGHT FOOT Status: Acute Current Visit: Yes (3) Sepsis SNOMED Code(s): 66654184 Code(s): A41.9 - SEPSIS, UNSPECIFIED ORGANISM Status: Acute Current Visit: Yes Qualifiers: Sepsis type: sepsis due to unspecified organism Sepsis acute organ dysfunction status: without acute organ dysfunction Qualified Code(s): A41.9 - Sepsis, unspecified organism (4) Type 2 diabetes mellitus SNOMED Code(s): 10474080 Code(s): E11.9 - TYPE 2 DIABETES MELLITUS WITHOUT COMPLICATIONS Status: Chronic Current Visit: Yes Qualifiers: Diabetes mellitus tank terminal gauger insulin use: without tank terminal gauger use Diabetes mellitus complication status: with neurologic complications Diabetes mellitus complication detail: with polyneuropathy Qualified Code(s): E11.42 - Type 2 diabetes mellitus with diabetic polyneuropathy (5) Chronic atrial fibrillation SNOMED Code(s): 757087926 Code(s): I48.20 - CHRONIC ATRIAL FIBRILLATION, UNSPECIFIED Status: Chronic Current Visit: Yes - Problem List Review Problem List Initiated/Reviewed/Updated: Yes - My Orders Last 24 Hours: My Active Orders 05/17/20 15:00 Sodium Chloride 0.9% [Normal Saline] 1,000 ml IV ASDIRECTED 05/17/20 15:26 Communication Order [RC] ASDIRECTED 05/18/20 09:00 Patient's Own Medication [Ptom] 1 each PO DAILY Patient's Own Medication [Ptom] 4 each PO DAILY 05/18/20 13:29 Calcium Carbonate [Tums] 1,000 mg PO Q2HR PRN 05/18/20 16:30 GLUCOSE POC LAB TO COLLECT JPM [POC] QIDACANDBED 05/18/20 21:00 GLUCOSE POC LAB TO COLLECT JPM [POC] QIDACANDBED 05/19/20 05:00 BASIC METABOLIC PANEL,BMP [CHEM] Timed CBC W/O DIFF,HEMOGRAM [HEME] Timed (1) 05/19/20 07:30 GLUCOSE POC LAB TO COLLECT JPM [POC] QIDACANDBED 05/19/20 11:30 GLUCOSE POC LAB TO COLLECT JPM [POC] QIDACANDBED 05/19/20 16:30 GLUCOSE POC LAB TO COLLECT JPM [POC] QIDACANDBED 05/19/20 21:00 GLUCOSE POC LAB TO COLLECT JPM [POC] QIDACANDBED 05/20/20 07:30 GLUCOSE POC LAB TO COLLECT JPM [POC] QIDACANDBED 05/20/20 11:30 GLUCOSE POC LAB TO COLLECT JPM [POC] QIDACANDBED 05/20/20 16:30 GLUCOSE POC LAB TO COLLECT JPM [POC] QIDACANDBED 05/20/20 21:00 GLUCOSE POC LAB TO COLLECT JPM [POC] QIDACANDBED 05/21/20 07:30 GLUCOSE POC LAB TO COLLECT JPM [POC] QIDACANDBED 05/21/20 11:30 GLUCOSE POC LAB TO COLLECT JPM [POC] QIDACANDBED 05/21/20 16:30 GLUCOSE POC LAB TO COLLECT JPM [POC] QIDACANDBED 05/21/20 21:00 GLUCOSE POC LAB TO COLLECT JPM [POC] QIDACANDBED 05/22/20 07:30 GLUCOSE POC LAB TO COLLECT JPM [POC] QIDACANDBED 05/22/20 11:30 GLUCOSE POC LAB TO COLLECT JPM [POC] QIDACANDBED 05/22/20 16:30 GLUCOSE POC LAB TO COLLECT JPM [POC] QIDACANDBED - Plan Plan:: ASSESSMENT AND PLAN - Cellulitis and abscess of the right foot with sepsis-sepsis has resolved. Abscess was debrided and sample sent for culture 05/17. Gram-positive cocci and gram-negative rods were noted on the Gram stain but culture is still pending. MRI negative for osteomyelitis. White count better again today. He continues to have fevers but they seem to be a little less intense. -Antibiotic coverage with ceftazidime and vancomycin -Follow-up cultures and adjust antibiotics as indicated -Surgical consultation with Dr. Lora -IV fluids at to keep open -Pain control Type 2 diabetes mellitus-mild hyperglycemia but blood sugars have been stable. -Continue home medications -Low-dose sliding scale insulin with his hyperglycemia probably related to the infection Chronic atrial fibrillation-currently rate controlled. -Continue rate control and systemic anticoagulation Maintenance issues - - DVT prophylaxis -apixaban - GI prophylaxis -not indicated - Nutrition -consistent carbohydrates Disposition -I would anticipate discharge home with home care after the hospital stay Primary care physician - Dr Vero Figueredo M.D.
[2020-05-18] MEDS: Lisinopril 10 MG Tab PO SCH ×2 (21:30→23:51)
[2020-05-18] MEDS: Amitriptyline 25 MG Tab PO SCH ×2 (21:30→23:51)
[2020-05-18] MEDS: Ondansetron 4 MG/2 ML SDV IV PRN (21:44)
[2020-05-18] MEDS: LORazepam 2 MG/ML SDV IVPUSH PRN (23:46)
[2020-05-19] MEDS ORDERED: Ondansetron 4 MG/2 ML SDV IVPUSH ONE (00:48)
[2020-05-19] MEDS ORDERED: LORazepam 2 MG/ML SDV IVPUSH ONE ×2 (01:54→03:25)
[2020-05-19] MEDS: LORazepam 2 MG/ML SDV IVPUSH PRN (02:15)
--- NOTE | 2020-05-19 04:14 | PCM.SN.2 ---
- Free Text/Narrative Note: time: 4:07AM Multi calls from 2 [facility] related to vomiting. Has been given extra doses of IV Ativan and IV Zofran. but continues with intermittent vomiting of 50 to 100 cc. no fevers this evening or night. O: vitals signs 36.3-88-16 B/P 158/84 O2 sat 93% appears pale and tired, no acute distress at this time. denies chest or abdominal pain, Reports starting to feel a little better. wearing C-Pap head gear. chest- lungs clear, heart s1s2 no murmur, regular rate abdomen- obese, soft, non tender, bowel sounds hypoactive ext- right foot in bandage, left foot no edema A: vomiting P: order extra doses of IV Zofran 4mg and IV Ativan 0.5 mg were given earlier X-ray abdomen flat and upright- results pending am labs CBC and BMP NPO, may have ice chips re-start IV fluids Normal Saline at 125ml/hr. Mr. Ponce agrees with plan of care.
--- NOTE | 2020-05-19 04:33 | CRLCR ---
INDICATION: Vomiting TECHNIQUE: Abdomen/Pelvis radiograph 3 views COMPARISON: None FINDINGS: Severe degradation of image quality noted due to body habitus and motion artifacts. Bowel: There is a 5 mm calcific density in the paraspinal region L2-3 with central lucency. This may represent a calcified lymph node or a density in the fecal stream or colonic diverticulum. Soft tissue: No evidence of pneumoperitoneum present. Bone: Severe degenerative disc disease with vacuum phenomenon is present at L2-3 and L3-4. IMPRESSION: 1. Unremarkable appearance of the visualized abdomen. Dictated by Fabiano Webb MD @ 05/19/2020 4:32:16 AM Dictated by: Fabiano Webb MD @ 05/19/2020 04:32:35 (Electronically Signed)
[2020-05-19] MEDS: Insulin Lispro 100 Unit/ML 3 ML KwikPen SUBCUT SCH ×4 (08:03→21:05)
[2020-05-19] MEDS: Sodium Chloride 0.9% 1,000 ML IV SCH ×2 (08:30→17:09)
[2020-05-19] MEDS: Ondansetron 4 MG/2 ML SDV IV PRN (10:20)
--- NOTE | 2020-05-19 11:52 | PCM.PN ---
- General Info Date of Service: 05/19/20 Subjective Update: Overnight the patient had difficulty with fever as well as several episodes of nausea and vomiting. He does not have any abdominal pain. He does continue to have nausea and vomiting this morning. He has had moderate drainage from the right foot wound. The wound was further debrided today by Dr. Lora. Blood sugars remain moderately elevated. He feels hungry but gets sick anytime he tries to eat or drink. Cultures from the initial wound sampling are still pending. Functional Status: Reports: Pain Controlled. Denies: Tolerating Diet - Review of Systems General: Reports: Fever Gastrointestinal: Reports: Vomiting - Patient Data Vitals - Most Recent: Last Vital Signs Temp 35.9 C L 05/19/20 10:59 Pulse 76 05/19/20 10:59 Resp 16 05/19/20 10:59 BP 141/75 H 05/19/20 10:59 Pulse Ox 95 05/19/20 10:59 Weight - Most Recent: 101.605 kg I&O - Last 24 Hours: Intake & Output 05/18/20 05/19/20 05/19/20 22:59 06:59 14:59 Intake Total 1220 961 Output Total 850 875 900 Balance 370 86 -900 Lab Results Last 24 Hours: Laboratory Results - last 24 hr 05/18/20 05/18/20 05/19/20 Range/Units 16:30 20:50 04:20 WBC 21.3 H (4.5-11.0) K/uL RBC 4.64 (4.30-5.90) M/uL Hgb 13.1 (12.0-15.0) g/dL Hct 40.0 (40.0-54.0) % MCV 86 (80-98) fL MCH 28 (27-31) pg MCHC 33 (32-36) % Plt Count 259 (150-400) K/uL Sodium (140-148) mmol/L Potassium (3.6-5.2) mmol/L Chloride (100-108) mmol/L Carbon Dioxide (21-32) mmol/L Anion Gap (5.0-14.0) mmol/L BUN (7-18) mg/dL Creatinine (0.8-1.3) mg/dL Est Cr Clr Drug Dosing mL/min Estimated GFR (MDRD) (>60) Glucose (74-106) mg/dL POC Glucose 255 H 256 H (74-106) MG/DL Calcium (8.5-10.1) mg/dL 05/19/20 05/19/20 05/19/20 Range/Units 04:20 07:44 11:34 WBC (4.5-11.0) K/uL RBC (4.30-5.90) M/uL Hgb (12.0-15.0) g/dL Hct (40.0-54.0) % MCV (80-98) fL MCH (27-31) pg MCHC (32-36) % Plt Count (150-400) K/uL Sodium 134 L (140-148) mmol/L Potassium 4.0 (3.6-5.2) mmol/L Chloride 99 L (100-108) mmol/L Carbon Dioxide 23 (21-32) mmol/L Anion Gap 16.0 H (5.0-14.0) mmol/L BUN 15 (7-18) mg/dL Creatinine 1.0 (0.8-1.3) mg/dL Est Cr Clr Drug Dosing 63.80 mL/min Estimated GFR (MDRD) > 60 (>60) Glucose 277 H (74-106) mg/dL POC Glucose 246 H 238 H (74-106) MG/DL Calcium 8.7 (8.5-10.1) mg/dL Kenneth Results Last 24 Hours: Microbiology 05/17/20 09:37 Gram Stain - Final Foot, Right Wound Culture - Preliminary Med Orders - Current: Current Medications Acetaminophen (Tylenol) 650 mg PO Q4H PRN PRN Reason: Pain (Mild 1-3)/fever Last Admin: 05/18/20 11:08 Dose: 650 mg Documented by: Amitriptyline HCl (Elavil) 25 mg PO BEDTIME [facility] Last Admin: 05/18/20 23:51 Dose: Not Given Documented by: Apixaban (Eliquis) 5 mg PO BID [facility] Last Admin: 05/18/20 23:51 Dose: Not Given Documented by: Calcium Carbonate/Glycine (Tums) 1,000 mg PO Q2H PRN PRN Reason: Indigestion Last Admin: 05/18/20 20:05 Dose: 1,000 mg Documented by: Gabapentin (Neurontin) 600 mg PO TID [facility] Last Admin: 05/18/20 23:51 Dose: Not Given Documented by: Hydromorphone HCl (Dilaudid) 0.5 mg IVPUSH Q2H PRN PRN Reason: Pain (severe 7-10) Ceftazidime 1 gm/ Sodium (Chloride) 50 mls @ 100 mls/hr IV Q8HR [facility] Last Admin: 05/19/20 05:20 Dose: 100 mls/hr Documented by: Vancomycin HCl 1.5 gm/ Sodium (Chloride) 250 mls @ 150 mls/hr IV Q12H [facility] Last Admin: 05/19/20 01:05 Dose: 150 mls/hr Documented by: Sodium Chloride (Normal Saline) 1,000 mls @ 125 mls/hr IV ASDIRECTED [facility] Last Admin: 05/19/20 08:30 Dose: 125 mls/hr Documented by: Insulin Human Lispro (Humalog) 0 unit SUBCUT QIDACANDBED [facility]; Protocol Last Admin: 05/19/20 08:03 Dose: 2 units Documented by: Lactobacillus Rhamnosus (Culturelle) 1 cap PO BID [facility] Last Admin: 05/18/20 23:51 Dose: Not Given Documented by: Lisinopril (Prinivil) 10 mg PO BEDTIME [facility] Last Admin: 05/18/20 23:51 Dose: Not Given Documented by: Lorazepam (Ativan) 0.5 mg IVPUSH Q4H PRN PRN Reason: Nausea/Vomiting Last Admin: 05/19/20 02:15 Dose: 0.5 mg Documented by: Magnesium Hydroxide (Milk Of Magnesia) 30 ml PO Q12H PRN PRN Reason: Constipation Last Admin: 05/17/20 10:57 Dose: 30 ml Documented by: Metformin HCl (Glucophage) 1,000 mg PO BID [facility] Last Admin: 05/18/20 23:51 Dose: Not Given Documented by: Ondansetron HCl (Zofran) 4 mg IV Q6H PRN PRN Reason: Nausea/Vomiting Last Admin: 05/19/20 10:20 Dose: 4 mg Documented by: Ondansetron HCl (Zofran Odt) 4 mg PO Q4H PRN PRN Reason: Nausea able to take PO Oxycodone HCl (Oxycodone) 5 - 10 mg PO Q4H PRN PRN Reason: Pain Last Admin: 05/17/20 11:41 Dose: 10 mg Documented by: Daily Multinutrient (Supplement (Ptom)) 1 each PO DAILY [facility] Last Admin: 05/18/20 08:40 Dose: 1 each Documented by: Vision Essentials (Gold (Ptom)) 4 each PO DAILY [facility] Last Admin: 05/18/20 08:41 Dose: 4 each Documented by: Senna/Docusate Sodium (Senna Plus) 1 tab PO BID PRN PRN Reason: Constipation Last Admin: 05/17/20 10:57 Dose: 1 tab Documented by: Discontinued Medications Gadoteridol (Prohance) 20 ml IV . DIRECTED [facility] Stop: 05/17/20 18:00 Last Admin: 05/17/20 10:10 Dose: 20 ml Documented by: Sodium Chloride (Normal Saline) 1,000 mls @ 100 mls/hr IV ASDIRECTED [facility] Last Admin: 05/17/20 05:42 Dose: 100 mls/hr Documented by: Sodium Chloride (Normal Saline) 1,000 mls @ 25 mls/hr IV ASDIRECTED [facility] Last Infusion: 05/19/20 03:40 Dose: 125 mls/hr Documented by: Lidocaine HCl (Xylocaine 1%) 20 ml INJECT ONETIME ONE Stop: 05/17/20 09:01 Last Admin: 05/17/20 09:32 Dose: 20 ml Documented by: Lorazepam (Ativan) 0.5 mg IVPUSH ONETIME ONE Stop: 05/19/20 01:55 Last Admin: 05/19/20 02:16 Dose: 0.5 mg Documented by: Lorazepam (Ativan) 1 mg IVPUSH ONETIME ONE Stop: 05/19/20 03:26 Last Admin: 05/19/20 05:28 Dose: Not Given Documented by: Ondansetron HCl (Zofran Odt) 4 mg PO Q6H PRN PRN Reason: Nausea able to take PO Last Admin: 05/16/20 19:37 Dose: 4 mg Documented by: Ondansetron HCl (Zofran) 4 mg IVPUSH ONETIME ONE Stop: 05/19/20 00:49 Last Admin: 05/19/20 01:03 Dose: 4 mg Documented by: - Exam Quality Assessment: No: Supplemental Oxygen General: Alert, Oriented, Cooperative, No Acute Distress Lungs: Clear to Auscultation, Normal Respiratory Effort Cardiovascular: Regular Rate, Regular Rhythm GI/Abdominal Exam: Normal Bowel Sounds, Soft, No Distention, Tender Extremities: No Pedal Edema, Increased Warmth (right foot ) Skin: Warm, Dry, Rash (erythema dorsum right foot ) Wound/Incisions: Drainage, Erythema Improving Psy/Mental Status: Alert, Normal Affect Sepsis Event Note - Evaluation Sepsis Screening Result: Sepsis Risk - Focused Exam Vital Signs: Vital Signs Temp Pulse Resp BP Pulse Ox 05/19/20 10:59 35.9 C L 76 16 141/75 H 95 05/19/20 07:09 35.9 C L 84 16 155/75 H 96 05/19/20 02:19 36.3 C 88 16 158/84 H 93 L - Problem List & Annotations (1) Cellulitis of foot, right SNOMED Code(s): 295684136 Code(s): L03.115 - CELLULITIS OF RIGHT LOWER LIMB Status: Acute Current Visit: Yes (2) Abscess of right foot SNOMED Code(s): 57015900579806966 Code(s): L02.611 - CUTANEOUS ABSCESS OF RIGHT FOOT Status: Acute Current Visit: Yes (3) Sepsis SNOMED Code(s): 27697425 Code(s): A41.9 - SEPSIS, UNSPECIFIED ORGANISM Status: Acute Current Visit: Yes Qualifiers: Sepsis type: sepsis due to unspecified organism Sepsis acute organ dysfunc tion status: without acute organ dysfunction Qualified Code(s): A41.9 - Sepsis, unspecified organism (4) Type 2 diabetes mellitus SNOMED Code(s): 95723267 Code(s): E11.9 - TYPE 2 DIABETES MELLITUS WITHOUT COMPLICATIONS Status: Chronic Current Visit: Yes Qualifiers: Diabetes mellitus 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 insulin use: without nursing home use Diabetes mellitus complication status: with neurologic complications Diabetes mellitus complication detail: with polyneuropathy Qualified Code(s): E11.42 - Type 2 diabetes mellitus with diabetic polyneuropathy (5) Chronic atrial fibrillation SNOMED Code(s): 728690543 Code(s): I48.20 - CHRONIC ATRIAL FIBRILLATION, UNSPECIFIED Status: Chronic Current Visit: Yes - Problem List Review Problem List Initiated/Reviewed/Updated: Yes - My Orders Last 24 Hours: My Active Orders 05/18/20 13:29 Calcium Carbonate [Tums] 1,000 mg PO Q2H PRN 05/19/20 11:49 Abdomen Pelvis w Cont [CT] Routine 05/19/20 13:45 VANCOMYCIN RANDOM [CHEM] Routine 05/19/20 16:30 GLUCOSE POC LAB TO COLLECT JPM [POC] QIDACANDBED 05/19/20 21:00 GLUCOSE POC LAB TO COLLECT JPM [POC] QIDACANDBED 05/20/20 05:00 CBC W/O DIFF,HEMOGRAM [HEME] Timed (1) COMPREHENSIVE METABOLIC PN,CMP [CHEM] Timed 05/20/20 07:30 GLUCOSE POC LAB TO COLLECT JPM [POC] QIDACANDBED 05/20/20 11:30 GLUCOSE POC LAB TO COLLECT JPM [POC] QIDACANDBED 05/20/20 16:30 GLUCOSE POC LAB TO COLLECT JPM [POC] QIDACANDBED 05/20/20 21:00 GLUCOSE POC LAB TO COLLECT JPM [POC] QIDACANDBED 05/21/20 07:30 GLUCOSE POC LAB TO COLLECT JPM [POC] QIDACANDBED 05/21/20 11:30 GLUCOSE POC LAB TO COLLECT JPM [POC] QIDACANDBED 05/21/20 16:30 GLUCOSE POC LAB TO COLLECT JPM [POC] QIDACANDBED 05/21/20 21:00 GLUCOSE POC LAB TO COLLECT JPM [POC] QIDACANDBED 05/22/20 07:30 GLUCOSE POC LAB TO COLLECT JPM [POC] QIDACANDBED 05/22/20 11:30 GLUCOSE POC LAB TO COLLECT JPM [POC] QIDACANDBED 05/22/20 16:30 GLUCOSE POC LAB TO COLLECT JPM [POC] QIDACANDBED - Plan Plan:: ASSESSMENT AND PLAN - Cellulitis and abscess of the right foot with sepsis-sepsis has resolved. Area of cellulitis appears to be improving but still significant redness and some fluctuance on the top of the right foot and between the first and second toes. Abscess was debrided twice including today. Patient has had persistent fevers. White blood cell count is higher today. Vitals have all been stable. Cultures are still pending with 2 different gram-positive cocci growing. Gram stain of the sample from today showed gram-negative rods. -Antibiotic coverage with ceftazidime and vancomycin -Follow-up cultures and adjust antibiotics as indicated -Surgical consultation with Dr. Lora -Continue IV fluids until oral intake improves -Pain control Nausea and vomiting-unclear if related to current infection or if there is some intra-abdominal pathology. CT scan of the abdomen and pelvis showed thickening of the esophagus, stomach and duodenum. -EGD in the morning -Symptomatic management Type 2 diabetes mellitus-moderate hyperglycemia. -Continue home medications -Medium-dose sliding scale insulin with his hyperglycemia probably related to the infection Chronic atrial fibrillation-currently rate controlled. -Continue rate control -Hold systemic anticoagulation Maintenance issues - - DVT prophylaxis -apixaban on hold - GI prophylaxis -not indicated - Nutrition -full liquid this afternoon and nothing by mouth after midnight Disposition -I would anticipate discharge home with home care after the hospital stay Primary care physician - Dr Vero Figueredo M.D.
[2020-05-19] MEDS ORDERED: Sodium Chloride 0.9% 10 ML Syringe FLUSH PRN (12:04)
[2020-05-19] MEDS ORDERED: Iopamidol 612 MG/ML 150 ML Bottle IV SCH (12:15)
[2020-05-19] MEDS: Lactobacillus Rhamnosus GG (Probiotic) Cap PO SCH ×2 (12:57→20:26)
[2020-05-19] MEDS: Gabapentin 300 MG Cap PO SCH ×3 (12:57→20:26)
[2020-05-19] MEDS: Apixaban 5 MG Tab PO SCH (12:57)
[2020-05-19] MEDS: metFORMIN 500 MG Tab PO SCH ×2 (12:57→20:23)
[2020-05-19] MEDS: [UNRECOGNIZED DRUG - OTHER] PO SCH (12:58)
[2020-05-19] MEDS: [UNRECOGNIZED DRUG - OTHER] PO SCH (12:58)
--- NOTE | 2020-05-19 15:35 | CT ---
Abdomen Pelvis w Cont CLINICAL HISTORY: Abdominal pain, vomiting COMPARISON: None. TECHNIQUE: Transverse scans were obtained from the base of the lungs to the pubic symphysis following oral contrast and IV infusion of contrast.Auto dosage reduction and iterative reconstructiontechniques employed. FINDINGS: The lung bases show some diffuse bronchiectasis. There is patchy atelectasis. There are small bilateral pleural effusions. The distal esophagus is thickened. There is also some mucosal prominence in the stomach and some thickening of the duodenum suggesting a gastroenteritis Just below the left main pulmonary vein there is a 1.5 x 2.6 x 2.6 cm soft tissue focus is may represent a lymph node. The liver shows no mass or biliary dilatation. The gallbladder has a normal appearance. The spleen has a normal size and shape. There is a small adjacent splenule. The pancreas shows no mass or inflammatory change. The adrenal glands appear normal bilaterally . There is a 3 cm cyst off the lower pole of the right kidney. There is some mild perinephric stranding greater on the right. There is no hydronephrosis. Ureters have a normal course and contour bladder has mild generalized wall thickening which is likely hypertrophy. There is moderate enlargement of the prostate. There is a small fluid collection in the rectovesical pouch. This is nonspecific. The small intestinal configuration is nonacute. The appendix has a normal contour. There are a few scattered subcentimeter cysts. There are a few parapelvic cysts. There is scarring in the upper pole of the left kidney. IMPRESSION: Thickening of the distal esophagus stomach and duodenum suggesting gastroenteritis Nonspecific soft tissue masslike focus in the low mediastinum just below the left main pulmonary vein measuring 1.5 x 2.6 x 2.6 cm. This may represent a large lymph node Bilateral hypertrophy and moderate prosthetic enlargement Multiple renal cysts. Mild perinephric stranding bilaterally right greater than left. This is nonspecific
--- NOTE | 2020-05-19 16:28 | OR ---
DATE OF PROCEDURE: 05/19/2020 SURGEON: Alvaro Lora MD PROCEDURE: Incision and drainage, abscess of right foot. PATHOLOGY: Cultures. COMPLICATION: None. MASONRY CONTRACTOR: None. ANESTHETIC: Local. RISKS: Risks, benefits, alternatives, and limitations including, but not limited to, infection, bleeding, abscess formation, septic shock, loss of limb or life, and other risks not listed here were explained to the patient, and they wished to proceed. PROCEDURE IN DETAIL: The patient was placed in supine position. The right foot was identified. Although the MRI did not show any abscess, a palpable area was noted, and this was fluctuant. Numbed with lidocaine with epinephrine. An incision was made. An abscess pocket occurring through the foot was then identified. Quarter-inch iodoform gauze was placed to this. This was cultured and irrigated. Dressings were applied. The patient tolerated the procedure well. Alvaro Lora MD /[id number]
[2020-05-19] MEDS: Lisinopril 10 MG Tab PO SCH (20:23)
[2020-05-19] MEDS: Amitriptyline 25 MG Tab PO SCH (20:24)
[2020-05-19] MEDS ORDERED: Insulin Lispro 100 Units/ML 3 ML Vial SUBCUT ONE (21:05)
[2020-05-20] MEDS: Ondansetron 4 MG/2 ML SDV IV PRN (05:59)
[2020-05-20] MEDS: Insulin Lispro 100 Unit/ML 3 ML KwikPen SUBCUT SCH ×5 (09:22→21:31)
[2020-05-20] MEDS ORDERED: fentaNYL 100 MCG/2 ML SDV ONE (09:31)
[2020-05-20] MEDS ORDERED: Propofol 200 MG/20 ML SDV ONE (09:32)
[2020-05-20] MEDS ORDERED: Lactated Ringers 1,000 ML ONE (10:11)
[2020-05-20] MEDS: [UNRECOGNIZED DRUG - OTHER] PO SCH (11:43)
[2020-05-20] MEDS: [UNRECOGNIZED DRUG - OTHER] PO SCH (11:43)
[2020-05-20] MEDS: metFORMIN 500 MG Tab PO SCH ×2 (11:43→21:19)
[2020-05-20] MEDS: Gabapentin 300 MG Cap PO SCH ×3 (11:43→21:22)
[2020-05-20] MEDS: Lactobacillus Rhamnosus GG (Probiotic) Cap PO SCH ×2 (11:43→21:27)
[2020-05-20] MEDS: Ondansetron 4 MG Tab.DIS PO PRN (15:38)
[2020-05-20] MEDS: Doxycycline 100 MG in Sodium Chloride 0.9% 100 ML IV SCH (15:40)
[2020-05-20] MEDS: Clotrimazole 10 MG Troche PO SCH ×3 (15:41→21:27)
--- NOTE | 2020-05-20 16:57 | PCM.PN ---
- General Info Date of Service: 05/20/20 Subjective Update: No acute events overnight. No significant fevers. No vomiting overnight. He did have one blood sugar that was over 400 last night but they are back down below 200 today. No significant foot pain. The dressing was changed in the operating room and it is looking a little better. EGD this morning raised concern for thrush in the esophagus. Biopsies were taken but are pending. Initial wound culture growing multiple gram-positive organisms. Second wound culture growing a gram-negative ahmet but identification is pending. - Patient Data Vitals - Most Recent: Last Vital Signs Temp 36.4 C 05/20/20 15:00 Pulse 77 05/20/20 15:00 Resp 18 05/20/20 15:00 BP 172/89 H 05/20/20 15:00 Pulse Ox 93 L 05/20/20 15:00 Weight - Most Recent: 101.605 kg I&O - Last 24 Hours: Intake & Output 05/20/20 05/20/20 05/20/20 06:59 14:59 22:59 Intake Total 1463 170 Output Total 525 150 125 Balance 938 20 -125 Lab Results Last 24 Hours: Laboratory Results - last 24 hr 05/19/20 05/20/20 05/20/20 Range/Units 21:00 04:00 04:00 WBC 16.3 H (4.5-11.0) K/uL RBC 4.10 L (4.30-5.90) M/uL Hgb 11.6 L (12.0-15.0) g/dL Hct 35.6 L (40.0-54.0) % MCV 87 (80-98) fL MCH 28 (27-31) pg MCHC 33 (32-36) % Plt Count 272 (150-400) K/uL Sodium 138 L (140-148) mmol/L Potassium 3.8 (3.6-5.2) mmol/L Chloride 104 (100-108) mmol/L Carbon Dioxide 25 (21-32) mmol/L Anion Gap 12.8 (5.0-14.0) mmol/L BUN 17 (7-18) mg/dL Creatinine 1.0 (0.8-1.3) mg/dL Est Cr Clr Drug Dosing 63.80 mL/min Estimated GFR (MDRD) > 60 (>60) Glucose 187 H (74-106) mg/dL POC Glucose 424 H (74-106) MG/DL Calcium 8.3 L (8.5-10.1) mg/dL Total Bilirubin 0.5 (0.2-1.0) mg/dL AST 43 H (15-37) U/L ALT 54 (12-78) U/L Alkaline Phosphatase 93 (46-116) U/L Total Protein 5.4 L (6.4-8.2) g/dL Albumin 1.8 L (3.4-5.0) g/dL Globulin 3.6 H (2.3-3.5) g/dL Albumin/Globulin Ratio 0.5 L (1.2-2.2) 05/20/20 05/20/20 05/20/20 Range/Units 07:30 11:30 16:30 WBC (4.5-11.0) K/uL RBC (4.30-5.90) M/uL Hgb (12.0-15.0) g/dL Hct (40.0-54.0) % MCV (80-98) fL MCH (27-31) pg MCHC (32-36) % Plt Count (150-400) K/uL Sodium (140-148) mmol/L Potassium (3.6-5.2) mmol/L Chloride (100-108) mmol/L Carbon Dioxide (21-32) mmol/L Anion Gap (5.0-14.0) mmol/L BUN (7-18) mg/dL Creatinine (0.8-1.3) mg/dL Est Cr Clr Drug Dosing mL/min Estimated GFR (MDRD) (>60) Glucose (74-106) mg/dL POC Glucose 196 H 184 H 219 H (74-106) MG/DL Calcium (8.5-10.1) mg/dL Total Bilirubin (0.2-1.0) mg/dL AST (15-37) U/L ALT (12-78) U/L Alkaline Phosphatase (46-116) U/L Total Protein (6.4-8.2) g/dL Albumin (3.4-5.0) g/dL Globulin (2.3-3.5) g/dL Albumin/Globulin Ratio (1.2-2.2) Kenneth Results Last 24 Hours: Microbiology 05/17/20 09:37 Gram Stain - Final Foot, Right Wound Culture - Final Staphylococcus Epidermidis Staphylococcus Aureus Viridans Streptococcus 05/19/20 13:30 Gram Stain - Final Foot, Right Med Orders - Current: Current Medications Acetaminophen (Tylenol) 650 mg PO Q4H PRN PRN Reason: Pain (Mild 1-3)/fever Last Admin: 05/18/20 11:08 Dose: 650 mg Documented by: Amitriptyline HCl (Elavil) 25 mg PO BEDTIME [facility] Last Admin: 05/19/20 20:24 Dose: 25 mg Documented by: Apixaban (Eliquis) 5 mg PO BID [facility] Last Admin: 05/19/20 12:57 Dose: Not Given Documented by: Calcium Carbonate/Glycine (Tums) 1,000 mg PO Q2H PRN PRN Reason: Indigestion Last Admin: 05/18/20 20:05 Dose: 1,000 mg Documented by: Clotrimazole (Mycelex) 10 mg PO 5XDAY [facility] Last Admin: 05/20/20 15:41 Dose: 10 mg Documented by: Gabapentin (Neurontin) 600 mg PO TID [facility] Last Admin: 05/20/20 14:40 Dose: Not Given Documented by: Hydromorphone HCl (Dilaudid) 0.5 mg IVPUSH Q2H PRN PRN Reason: Pain (severe 7-10) Last Admin: 05/20/20 05:58 Dose: 0.5 mg Documented by: Ceftazidime 1 gm/ Sodium (Chloride) 50 mls @ 100 mls/hr IV Q8HR [facility] Last Admin: 05/20/20 14:40 Dose: 100 mls/hr Documented by: Doxycycline Hyclate 100 mg/ (Sodium Chloride) 100 mls @ 100 mls/hr IV Q12H [facility] Last Admin: 05/20/20 15:40 Dose: 100 mls/hr Documented by: Insulin Human Lispro (Humalog) 0 unit SUBCUT QIDACANDBED [facility]; Protocol Last Admin: 05/20/20 12:14 Dose: 2 units Documented by: Lactobacillus Rhamnosus (Culturelle) 1 cap PO BID [facility] Last Admin: 05/20/20 11:43 Dose: Not Given Documented by: Lisinopril (Prinivil) 10 mg PO BEDTIME [facility] Last Admin: 05/19/20 20:23 Dose: 10 mg Documented by: Lorazepam (Ativan) 0.5 mg IVPUSH Q4H PRN PRN Reason: Nausea/Vomiting Last Admin: 05/19/20 02:15 Dose: 0.5 mg Documented by: Magnesium Hydroxide (Milk Of Magnesia) 30 ml PO Q12H PRN PRN Reason: Constipation Last Admin: 05/17/20 10:57 Dose: 30 ml Documented by: Metformin HCl (Glucophage) 1,000 mg PO BID [facility] Last Admin: 05/20/20 11:43 Dose: Not Given Documented by: Ondansetron HCl (Zofran) 4 mg IV Q6H PRN PRN Reason: Nausea/Vomiting Last Admin: 05/20/20 05:59 Dose: 4 mg Documented by: Ondansetron HCl (Zofran Odt) 4 mg PO Q4H PRN PRN Reason: Nausea able to take PO Last Admin: 05/20/20 15:38 Dose: 4 mg Documented by: Oxycodone HCl (Oxycodone) 5 - 10 mg PO Q4H PRN PRN Reason: Pain Last Admin: 05/17/20 11:41 Dose: 10 mg Documented by: Daily Multinutrient (Supplement (Ptom)) 1 each PO DAILY [facility] Last Admin: 05/20/20 11:43 Dose: Not Given Documented by: Vision Essentials (Gold (Ptom)) 4 each PO DAILY [facility] Last Admin: 05/20/20 11:43 Dose: Not Given Documented by: Senna/Docusate Sodium (Senna Plus) 1 tab PO BID PRN PRN Reason: Constipation Last Admin: 05/17/20 10:57 Dose: 1 tab Documented by: Discontinued Medications Fentanyl (Sublimaze) Confirm Administered Dose 100 mcg .ROUTE .STK-MED ONE Stop: 05/20/20 09:32 Gadoteridol (Prohance) 20 ml IV . DIRECTED [facility] Stop: 05/17/20 18:00 Last Admin: 05/17/20 10:10 Dose: 20 ml Documented by: Sodium Chloride (Normal Saline) 1,000 mls @ 100 mls/hr IV ASDIRECTED [facility] Last Admin: 05/17/20 05:42 Dose: 100 mls/hr Documented by: Vancomycin HCl 1.5 gm/ Sodium (Chloride) 250 mls @ 150 mls/hr IV Q12H [facility] Last Admin: 05/20/20 15:51 Dose: Not Given Documented by: Sodium Chloride (Normal Saline) 1,000 mls @ 25 mls/hr IV ASDIRECTED [facility] Last Infusion: 05/19/20 03:40 Dose: 125 mls/hr Documented by: Sodium Chloride (Normal Saline) 1,000 mls @ 125 mls/hr IV ASDIRECTED [facility] Last Admin: 05/19/20 17:09 Dose: 125 mls/hr Documented by: Sodium Chloride (Normal Saline) 85 mls @ 3 mls/sec IV ONETIME ONE Stop: 05/19/20 12:05 Last Admin: 05/19/20 12:26 Dose: 3 mls/sec Documented by: Lactated Ringer's (Ringers, Lactated) Confirm Administered Dose 1,000 mls @ as directed .ROUTE .STK-MED ONE Stop: 05/20/20 10:12 Insulin Human Lispro (Humalog) 0 unit SUBCUT QIDACANDBED [facility]; Protocol Last Admin: 05/20/20 09:22 Dose: 2 units Documented by: Insulin Human Lispro (Humalog) 10 unit SUBCUT ONETIME ONE Stop: 05/19/20 21:06 Last Admin: 05/19/20 21:26 Dose: 10 units Documented by: Iopamidol (Isovue-300 (61%)) 150 ml IV . DIRECTED [facility] Last Admin: 05/19/20 12:25 Dose: 150 ml Documented by: Lidocaine HCl (Xylocaine 1%) 20 ml INJECT ONETIME ONE Stop: 05/17/20 09:01 Last Admin: 05/17/20 09:32 Dose: 20 ml Documented by: Lorazepam (Ativan) 0.5 mg IVPUSH ONETIME ONE Stop: 05/19/20 01:55 Last Admin: 05/19/20 02:16 Dose: 0.5 mg Documented by: Lorazepam (Ativan) 1 mg IVPUSH ONETIME ONE Stop: 05/19/20 03:26 Last Admin: 05/19/20 05:28 Dose: Not Given Documented by: Ondansetron HCl (Zofran Odt) 4 mg PO Q6H PRN PRN Reason: Nausea able to take PO Last Admin: 09/21/20 19:37 Dose: 4 mg Documented by: Ondansetron HCl (Zofran) 4 mg IVPUSH ONETIME ONE Stop: 05/19/20 00:49 Last Admin: 05/19/20 01:03 Dose: 4 mg Documented by: Propofol (Diprivan 20 Ml) Confirm Administered Dose 200 mg .ROUTE .STK-MED ONE Stop: 05/20/20 09:33 Sodium Chloride (Saline Flush) 10 ml FLUSH ONETIME PRN PRN Reason: PER RADIOLOGY PROTOCOL Last Admin: 05/19/20 12:25 Dose: 10 ml Documented by: - Exam Quality Assessment: No: Supplemental Oxygen General: Alert, Oriented, Cooperative, No Acute Distress Lungs: Normal Respiratory Effort Cardiovascular: Regular Rate, Regular Rhythm GI/Abdominal Exam: Soft, No Distention Extremities: No Pedal Edema Skin: Warm, Dry Psy/Mental Status: Alert, Normal Affect Sepsis Event Note - Evaluation Sepsis Screening Result: No Definite Risk - Focused Exam Vital Signs: Vital Signs Temp Pulse Resp BP Pulse Ox 05/20/20 15:00 36.4 C 77 18 172/89 H 93 L 05/20/20 11:38 36.0 C L 18 160/82 H 05/20/20 11:20 18 165/80 H 05/20/20 11:07 35.9 C L 68 18 158/79 H 92 L 05/20/20 10:45 36.2 C 70 18 164/79 H 93 L 05/20/20 10:39 36.5 C 70 16 166/88 H 95 05/20/20 10:35 69 18 157/83 H 99 05/20/20 10:31 70 18 152/78 H 99 05/20/20 10:26 69 18 146/82 H 98 05/20/20 10:20 36.3 C 69 18 139/76 97 05/20/20 08:53 36.1 C 72 16 163/78 H 95 - Problem List & Annotations (1) Cellulitis of foot, right SNOMED Code(s): 574237929 Code(s): L03.115 - CELLULITIS OF RIGHT LOWER LIMB Status: Acute Current Visit: Yes (2) Abscess of right foot SNOMED Code(s): 70292710042029316 Code(s): L02.611 - CUTANEOUS ABSCESS OF RIGHT FOOT Status: Acute Current Visit: Yes (3) Sepsis SNOMED Code(s): 84768878 Code(s): A41.9 - SEPSIS, UNSPECIFIED ORGANISM Status: Acute Current Visit: Yes Qualifiers: Sepsis type: sepsis due to unspecified organism Sepsis acute organ dysfunction status: without acute organ dysfunction Qualified Code(s): A41.9 - Sepsis, unspecified organism (4) Type 2 diabetes mellitus SNOMED Code(s): 35211098 Code(s): E11.9 - TYPE 2 DIABETES MELLITUS WITHOUT COMPLICATIONS Status: Chronic Current Visit: Yes Qualifiers: Diabetes mellitus group home insulin use: without computer terminal operator use Diabetes mellitus complication status: with neurologic complications Diabetes mellitus complication detail: with polyneuropathy Qualified Code(s): E11.42 - Type 2 diabetes mellitus with diabetic polyneuropathy (5) Chronic atrial fibrillation SNOMED Code(s): 924153401 Code(s): I48.20 - CHRONIC ATRIAL FIBRILLATION, UNSPECIFIED Status: Chronic Current Visit: Yes (6) Esophageal candidiasis SNOMED Code(s): 66163204 Code(s): B37.81 - CANDIDAL ESOPHAGITIS Status: Acute Current Visit: Yes - Problem List Review Problem List Initiated/Reviewed/Updated: Yes - My Orders Last 24 Hours: My Active Orders 05/19/20 20:00 Insulin Lispro [HumaLOG] See Protocol SUBCUT 05/20/20 15:30 Clotrimazole [Mycelex] 10 mg PO 5XDAY 05/20/20 16:00 Doxycycline [Vibramycin] 100 mg Sodium Chloride 0.9% [Normal Saline] 100 ml IV Q12H 05/20/20 Dinner Full Liquid Diet [DIET] 05/20/20 21:00 GLUCOSE POC LAB TO COLLECT JPM [POC] QIDBED 05/21/20 05:00 BASIC METABOLIC PANEL,BMP [CHEM] Timed CBC W/O DIFF,HEMOGRAM [HEME] Timed (1) 05/21/20 07:30 GLUCOSE POC LAB TO COLLECT JPM [POC] QIDACANDBED 05/21/20 11:30 GLUCOSE POC LAB TO COLLECT JPM [POC] QIDACANDBED 05/21/20 16:30 GLUCOSE POC LAB TO COLLECT JPM [POC] QIDACANDBED 05/21/20 21:00 GLUCOSE POC LAB TO COLLECT JPM [POC] QIDACANDBED 05/22/20 07:30 GLUCOSE POC LAB TO COLLECT JPM [POC] QIDACANDBED 05/22/20 11:30 GLUCOSE POC LAB TO COLLECT JPM [POC] QIDACANDBED 05/22/20 16:30 GLUCOSE POC LAB TO COLLECT JPM [POC] QIDACANDBED - Plan Plan:: ASSESSMENT AND PLAN - Cellulitis and abscess of the right foot with sepsis-sepsis has resolved. Slowly getting better. Initial wound culture grew out 3 different gram-positive cocci and second wound culture growing a gram-negative ahmet with identification pending. Slowly getting better. -Antibiotic coverage with ceftazidime and doxycycline -Follow-up cultures and adjust antibiotics as indicated -Surgical consultation with Dr. Lora -Saline lock IV -Pain control Esophageal candidiasis-suspected based on EGD results. I believe this has been present but was worsened by the antibiotics administered during the hospital stay. Patient has had symptoms for many weeks. -Mycelex troches 5 times a day -Symptomatic management Type 2 diabetes mellitus-moderate hyperglycemia has persisted. -Continue home medications -Medium-dose sliding scale insulin with his hyperglycemia probably related to the infection -A1c in the morning Chronic atrial fibrillation-currently rate controlled. -Continue rate control -Restart anticoagulation Maintenance issues - - DVT prophylaxis -apixaban - GI prophylaxis -not indicated - Nutrition -full liquid this afternoon Disposition -I would anticipate discharge home with home care after the hospital stay Primary care physician - Dr Vero Figueredo M.D.
[2020-05-20] MEDS: Apixaban 5 MG Tab PO SCH (21:21)
[2020-05-20] MEDS: Amitriptyline 25 MG Tab PO SCH (21:22)
[2020-05-20] MEDS: Lisinopril 10 MG Tab PO SCH (21:22)
[2020-05-20] MEDS: Melatonin 3 MG Tab PO PRN (21:29)
[2020-05-21] MEDS: Acetaminophen 325 MG Tab PO PRN (01:06)
[2020-05-21] MEDS: Doxycycline 100 MG in Sodium Chloride 0.9% 100 ML IV SCH ×2 (04:11→17:07)
[2020-05-21] MEDS: Clotrimazole 10 MG Troche PO SCH ×5 (05:42→21:01)
[2020-05-21 08:36] LABS: HEMOGLOBIN A1C 8.3 % (4.5-6.2)
[2020-05-21] MEDS: Insulin Lispro 100 Unit/ML 3 ML KwikPen SUBCUT SCH ×4 (08:51→21:13)
[2020-05-21] MEDS: Lactobacillus Rhamnosus GG (Probiotic) Cap PO SCH ×2 (08:56→21:01)
[2020-05-21] MEDS: metFORMIN 500 MG Tab PO SCH ×2 (08:57→21:13)
[2020-05-21] MEDS: Gabapentin 300 MG Cap PO SCH ×3 (08:57→21:03)
[2020-05-21] MEDS: [UNRECOGNIZED DRUG - OTHER] PO SCH (08:58)
[2020-05-21] MEDS: [UNRECOGNIZED DRUG - OTHER] PO SCH (08:59)
[2020-05-21] MEDS: Apixaban 5 MG Tab PO SCH ×2 (09:01→21:02)
[2020-05-21] MEDS: Ondansetron 4 MG Tab.DIS PO PRN (10:18)
[2020-05-21] MEDS: Magnesium Hydroxide 400 MG/5 ML Susp 30 ML Cup PO PRN (10:18)
--- NOTE | 2020-05-21 11:31 | PCM.PN ---
- General Info Date of Service: 05/21/20 Subjective Update: No acute events overnight. No fevers. No significant foot pain. Nausea and vomiting are quite a bit better but not resolved. Blood sugars still mildly elevated but overall doing okay. Strength is improving some. Culture from the second wound drainage is still pending but is growing to gram-positive cocci at this time. He feels tired but otherwise feels okay and seems to be slowly improving. White count is down again today. Functional Status: Reports: Pain Controlled - Review of Systems General: Denies: Fever Gastrointestinal: Reports: Nausea Musculoskeletal: Denies: Foot Pain - Patient Data Vitals - Most Recent: Last Vital Signs Temp 36.3 C 05/21/20 08:14 Pulse 62 05/21/20 08:14 Resp 15 05/21/20 08:14 BP 170/73 H 05/21/20 08:14 Pulse Ox 96 05/21/20 08:14 Weight - Most Recent: 101.605 kg I&O - Last 24 Hours: Intake & Output 05/20/20 05/21/20 05/21/20 22:59 06:59 14:59 Intake Total 690 150 480 Output Total 525 400 Balance 165 -250 480 Lab Results Last 24 Hours: Laboratory Results - last 24 hr 05/20/20 05/20/20 05/21/20 Range/Units 16:30 21:00 00:38 WBC (4.5-11.0) K/uL RBC (4.30-5.90) M/uL Hgb (12.0-15.0) g/dL Hct (40.0-54.0) % MCV (80-98) fL MCH (27-31) pg MCHC (32-36) % Plt Count (150-400) K/uL Sodium (140-148) mmol/L Potassium (3.6-5.2) mmol/L Chloride (100-108) mmol/L Carbon Dioxide (21-32) mmol/L Anion Gap (5.0-14.0) mmol/L BUN (7-18) mg/dL Creatinine (0.8-1.3) mg/dL Est Cr Clr Drug Dosing mL/min Estimated GFR (MDRD) (>60) Glucose (74-106) mg/dL POC Glucose 219 H 246 H (74-106) MG/DL Hemoglobin A1c 8.3 H (4.5-6.2) % Calcium (8.5-10.1) mg/dL 05/21/20 05/21/20 05/21/20 Range/Units 05:55 05:55 07:30 WBC 14.2 H (4.5-11.0) K/uL RBC 4.33 (4.30-5.90) M/uL Hgb 12.1 (12.0-15.0) g/dL Hct 37.6 L (40.0-54.0) % MCV 87 (80-98) fL MCH 28 (27-31) pg MCHC 32 (32-36) % Plt Count 343 (150-400) K/uL Sodium 136 L (140-148) mmol/L Potassium 3.8 (3.6-5.2) mmol/L Chloride 102 (100-108) mmol/L Carbon Dioxide 26 (21-32) mmol/L Anion Gap 11.8 (5.0-14.0) mmol/L BUN 18 (7-18) mg/dL Creatinine 0.9 (0.8-1.3) mg/dL Est Cr Clr Drug Dosing 70.88 mL/min Estimated GFR (MDRD) > 60 (>60) Glucose 207 H (74-106) mg/dL POC Glucose 221 H (74-106) MG/DL Hemoglobin A1c (4.5-6.2) % Calcium 8.6 (8.5-10.1) mg/dL Kenneth Results Last 24 Hours: Microbiology 05/19/20 13:30 Gram Stain - Final Foot, Right Wound Culture - Preliminary Med Orders - Current: Current Medications Acetaminophen (Tylenol) 650 mg PO Q4H PRN PRN Reason: Pain (Mild 1-3)/fever Last Admin: 05/21/20 01:06 Dose: 650 mg Documented by: Amitriptyline HCl (Elavil) 25 mg PO BEDTIME [facility] Last Admin: 05/20/20 21:22 Dose: 25 mg Documented by: Apixaban (Eliquis) 5 mg PO BID [facility] Last Admin: 05/21/20 09:01 Dose: 5 mg Documented by: Calcium Carbonate/Glycine (Tums) 1,000 mg PO Q2H PRN PRN Reason: Indigestion Last Admin: 05/18/20 20:05 Dose: 1,000 mg Documented by: Clotrimazole (Mycelex) 10 mg PO 5XDAY [facility] Last Admin: 05/21/20 09:00 Dose: 10 mg Documented by: Gabapentin (Neurontin) 600 mg PO TID [facility] Last Admin: 05/21/20 08:57 Dose: Not Given Documented by: Hydromorphone HCl (Dilaudid) 0.5 mg IVPUSH Q2H PRN PRN Reason: Pain (severe 7-10) Last Admin: 05/20/20 05:58 Dose: 0.5 mg Documented by: Ceftazidime 1 gm/ Sodium (Chloride) 50 mls @ 100 mls/hr IV Q8HR [facility] Last Admin: 05/21/20 05:42 Dose: 100 mls/hr Documented by: Doxycycline Hyclate 100 mg/ (Sodium Chloride) 100 mls @ 100 mls/hr IV Q12H [facility] Last Admin: 05/21/20 04:11 Dose: 100 mls/hr Documented by: Insulin Human Lispro (Humalog) 0 unit SUBCUT QIDACANDBED [facility]; Protocol Last Admin: 05/21/20 08:51 Dose: 4 units Documented by: Lactobacillus Rhamnosus (Culturelle) 1 cap PO BID [facility] Last Admin: 05/21/20 08:56 Dose: 1 cap Documented by: Lisinopril (Prinivil) 10 mg PO BEDTIME [facility] Last Admin: 05/20/20 21:22 Dose: 10 mg Documented by: Lorazepam (Ativan) 0.5 mg IVPUSH Q4H PRN PRN Reason: Nausea/Vomiting Last Admin: 05/19/20 02:15 Dose: 0.5 mg Documented by: Magnesium Hydroxide (Milk Of Magnesia) 30 ml PO Q12H PRN PRN Reason: Constipation Last Admin: 05/21/20 10:18 Dose: 30 ml Documented by: Melatonin (Melatonin) 9 mg PO BEDTIME PRN PRN Reason: Insomnia Last Admin: 05/20/20 21:29 Dose: 9 mg Documented by: Metformin HCl (Glucophage) 1,000 mg PO BID [facility] Last Admin: 05/21/20 08:57 Dose: 1,000 mg Documented by: Ondansetron HCl (Zofran) 4 mg IV Q6H PRN PRN Reason: Nausea/Vomiting Last Admin: 05/20/20 05:59 Dose: 4 mg Documented by: Ondansetron HCl (Zofran Odt) 4 mg PO Q4H PRN PRN Reason: Nausea able to take PO Last Admin: 05/21/20 10:18 Dose: 4 mg Documented by: Oxycodone HCl (Oxycodone) 5 - 10 mg PO Q4H PRN PRN Reason: Pain Last Admin: 05/17/20 11:41 Dose: 10 mg Documented by: Daily Multinutrient (Supplement (Ptom)) 1 each PO DAILY [facility] Last Admin: 05/21/20 08:58 Dose: 1 each Documented by: Vision Essentials (Gold (Ptom)) 4 each PO DAILY [facility] Last Admin: 05/21/20 08:59 Dose: 4 each Documented by: Senna/Docusate Sodium (Senna Plus) 1 tab PO BID PRN PRN Reason: Constipation Last Admin: 05/21/20 10:18 Dose: 1 tab Documented by: Discontinued Medications Fentanyl (Sublimaze) Confirm Administered Dose 100 mcg .ROUTE .STK-MED ONE Stop: 05/20/20 09:32 Gadoteridol (Prohance) 20 ml IV . DIRECTED [facility] Stop: 05/17/20 18:00 Last Admin: 05/17/20 10:10 Dose: 20 ml Documented by: Sodium Chloride (Normal Saline) 1,000 mls @ 100 mls/hr IV ASDIRECTED [facility] Last Admin: 05/17/20 05:42 Dose: 100 mls/hr Documented by: Vancomycin HCl 1.5 gm/ Sodium (Chloride) 250 mls @ 150 mls/hr IV Q12H [facility] Last Admin: 05/20/20 15:51 Dose: Not Given Documented by: Sodium Chloride (Normal Saline) 1,000 mls @ 25 mls/hr IV ASDIRECTED [facility] Last Infusion: 05/19/20 03:40 Dose: 125 mls/hr Documented by: Sodium Chloride (Normal Saline) 1,000 mls @ 125 mls/hr IV ASDIRECTED [facility] Last Admin: 05/19/20 17:09 Dose: 125 mls/hr Documented by: Sodium Chloride (Normal Saline) 85 mls @ 3 mls/sec IV ONETIME ONE Stop: 05/19/20 12:05 Last Admin: 05/19/20 12:26 Dose: 3 mls/sec Documented by: Lactated Ringer's (Ringers, Lactated) Confirm Administered Dose 1,000 mls @ as directed .ROUTE .STK-MED ONE Stop: 05/20/20 10:12 Insulin Human Lispro (Humalog) 0 unit SUBCUT QIDACANDBED [facility]; Protocol Last Admin: 05/20/20 09:22 Dose: 2 units Documented by: Insulin Human Lispro (Humalog) 10 unit SUBCUT ONETIME ONE Stop: 05/19/20 21:06 Last Admin: 05/19/20 21:26 Dose: 10 units Documented by: Iopamidol (Isovue-300 (61%)) 150 ml IV . DIRECTED [facility] Last Admin: 05/19/20 12:25 Dose: 150 ml Documented by: Lidocaine HCl (Xylocaine 1%) 20 ml INJECT ONETIME ONE Stop: 05/17/20 09:01 Last Admin: 05/17/20 09:32 Dose: 20 ml Documented by: Lorazepam (Ativan) 0.5 mg IVPUSH ONETIME ONE Stop: 05/19/20 01:55 Last Admin: 05/19/20 02:16 Dose: 0.5 mg Documented by: Lorazepam (Ativan) 1 mg IVPUSH ONETIME ONE Stop: 05/19/20 03:26 Last Admin: 05/19/20 05:28 Dose: Not Given Documented by: Ondansetron HCl (Zofran Odt) 4 mg PO Q6H PRN PRN Reason: Nausea able to take PO Last Admin: 05/16/20 19:37 Dose: 4 mg Documented by: Ondansetron HCl (Zofran) 4 mg IVPUSH ONETIME ONE Stop: 05/19/20 00:49 Last Admin: 05/19/20 01:03 Dose: 4 mg Documented by: Propofol (Diprivan 20 Ml) Confirm Administered Dose 200 mg .ROUTE .STK-MED ONE Stop: 05/20/20 09:33 Sodium Chloride (Saline Flush) 10 ml FLUSH ONETIME PRN PRN Reason: PER RADIOLOGY PROTOCOL Last Admin: 05/19/20 12:25 Dose: 10 ml Documented by: - Exam Quality Assessment: No: Supplemental Oxygen General: Alert, Oriented, Cooperative, No Acute Distress Lungs: Normal Respiratory Effort Cardiovascular: Regular Rate, Regular Rhythm GI/Abdominal Exam: Soft, No Distention Extremities: No Pedal Edema, Increased Warmth (right lateral foot ), Other (distal half of right foot wrapped with NIDIA) Skin: Warm, Dry Psy/Mental Status: Alert, Normal Affect Sepsis Event Note - Evaluation Sepsis Screening Result: No Definite Risk - Focused Exam Vital Signs: Vital Signs Temp Pulse Resp BP Pulse Ox 05/21/20 08:14 36.3 C 62 15 170/73 H 96 05/21/20 03:00 15 - Problem List & Annotations (1) Cellulitis of foot, right SNOMED Code(s): 582304119 Code(s): L03.115 - CELLULITIS OF RIGHT LOWER LIMB Status: Acute Current Visit: Yes (2) Abscess of right foot SNOMED Code(s): 60963836756804552 Code(s): L02.611 - CUTANEOUS ABSCESS OF RIGHT FOOT Status: Acute Current Visit: Yes (3) Sepsis SNOMED Code(s): 84585005 Code(s): A41.9 - SEPSIS, UNSPECIFIED ORGANISM Status: Acute Current Visit: Yes Qualifiers: Sepsis type: sepsis due to unspecified organism Sepsis acute organ dysfunction status: without acute organ dysfunction Qualified Code(s): A41.9 - Sepsis, unspecified organism (4) Type 2 diabetes mellitus SNOMED Code(s): 19955628 Code(s): E11.9 - TYPE 2 DIABETES MELLITUS WITHOUT COMPLICATIONS Status: Chronic Current Visit: Yes Qualifiers: Diabetes mellitus radio division lieutenant insulin use: without radio division lieutenant use Diabetes mellitus complication status: with neurologic complications Diabetes mellitus complication detail: with polyneuropathy Qualified Code(s): E11.42 - Type 2 diabetes mellitus with diabetic polyneuropathy (5) Chronic atrial fibrillation SNOMED Code(s): 990667925 Code(s): I48.20 - CHRONIC ATRIAL FIBRILLATION, UNSPECIFIED Status: Chronic Current Visit: Yes (6) Esophageal candidiasis SNOMED Code(s): 69953953 Code(s): B37.81 - CANDIDAL ESOPHAGITIS Status: Acute Current Visit: Yes - Problem List Review Problem List Initiated/Reviewed/Updated: Yes - My Orders Last 24 Hours: My Active Orders 05/20/20 15:30 Clotrimazole [Mycelex] 10 mg PO 5XDAY 05/20/20 16:00 Doxycycline [Vibramycin] 100 mg Sodium Chloride 0.9% [Normal Saline] 100 ml IV Q12H 05/20/20 Dinner Full Liquid Diet [DIET] 05/20/20 21:02 Melatonin 9 mg PO BEDTIME PRN 05/21/20 10:30 CV Ankle Brachial Index (NAN) [US] Routine 05/21/20 11:30 GLUCOSE POC LAB TO COLLECT JPM [POC] QIDACANDBED Fluconazole/Normal Saline [Diflucan in NS 200 MG/100 ML] 200 mg Premix Bag 1 bag IV Q24H 05/21/20 16:30 GLUCOSE POC LAB TO COLLECT JPM [POC] QIDACANDBED 05/21/20 21:00 GLUCOSE POC LAB TO COLLECT JPM [POC] QIDACANDBED 05/22/20 05:00 BASIC METABOLIC PANEL,BMP [CHEM] Timed CBC W/O DIFF,HEMOGRAM [HEME] Timed (1) 05/22/20 07:30 GLUCOSE POC LAB TO COLLECT JPM [POC] QIDACANDBED 05/22/20 11:30 GLUCOSE POC LAB TO COLLECT JPM [POC] QIDACANDBED 05/22/20 16:30 GLUCOSE POC LAB TO COLLECT JPM [POC] QIDACANDBED - Plan Plan:: ASSESSMENT AND PLAN - Cellulitis and abscess of the right foot with sepsis-sepsis has resolved. Slowly getting better. Wound cultures are growing out a variety of gram- positive organisms. Should be covered by what he is on but the final culture is still pending. Clinically seems to be getting better. White count trending down. No significant fevers. -NAN testing today -Antibiotic coverage with ceftazidime and doxycycline -Follow-up cultures and adjust antibiotics as indicated -Surgical consultation with Dr. Lora -Saline lock IV -Pain control Esophageal candidiasis-suspected based on EGD results. Symptoms are little better today. -One-time dose of IV fluconazole -Mycelex troches 5 times a day -Symptomatic management Type 2 diabetes mellitus-moderate hyperglycemia has persisted, probably related to his inflammation from the infection. Hemoglobin A1c 8.3. -Continue home medications -Medium-dose sliding scale insulin with his hyperglycemia probably related to the infection -A1c in the morning Chronic atrial fibrillation-currently rate controlled. -Continue rate control -Restart anticoagulation Maintenance issues - - DVT prophylaxis -apixaban - GI prophylaxis -not indicated - Nutrition -full liquids Disposition -I would anticipate discharge home with home care after the hospital stay Primary care physician - Dr Vero Figueredo M.D.
[2020-05-21] MEDS ORDERED: Fluconazole/Normal Saline 200 MG in Premix Bag 1 BAG IV SCH (12:00)
--- NOTE | 2020-05-21 16:47 | CRLUS ---
ULTRASOUND BILATERAL LOWER EXTREMITY ANKLE-BRACHIAL INDICES INDICATION: Right leg ischemia. COMPARISON: None available. TECHNIQUE: ABIs bilateral lower extremities. FINDINGS: No ultrasound images provided. The rhythm strip from the waveforms of the posterior tibial artery and dorsalis pedis artery were submitted bilaterally. There is a monophasic waveform in the right posterior tibial artery and dorsalis pedis artery above the baseline. On the left, there is a multiphasic waveform in the posterior tibial artery, with a mono to biphasic waveform in the dorsalis pedis artery. The systolic blood pressure in the right and left upper extremity were recorded at 173 and 170 mmHg, respectively. On the right, ABIs were recorded at 1.16 and 1.10. On the left, they were recorded at 1.10 for the dorsalis pedis artery but was found to be noncompressible for the posterior tibial artery. IMPRESSION: 1. Monophasic waveforms in the right lower extremity at the ankle, which is abnormal. Suspect ABIs therefore to be falsely elevated. Recommend further evaluation with CTA or MRA runoff. 2. Multiphasic waveforms in the left posterior tibial artery and mono to biphasic waveforms in the dorsalis pedis artery of the left leg. The vessels were noncompressible for the posterior tibial artery and unreliable for the dorsalis pedis artery. 3. Suboptimal blood pressure control with systolic blood pressure as high as 173 mmHg. LUIS ARREGUIN M.D. Interventional Radiology/Diagnostic Radiology (IR/DR) [email or web address] SUSAN/kulwinder / bm/Dictated by: Luis Arreguin MD @ 05/21/2020 7:51:00 PM (Electronically Signed)
[2020-05-21] MEDS: Amitriptyline 25 MG Tab PO SCH (21:01)
[2020-05-21] MEDS: Lisinopril 10 MG Tab PO SCH (21:03)
[2020-05-21] MEDS: Melatonin 3 MG Tab PO PRN (21:17)
[2020-05-22] MEDS: Doxycycline 100 MG in Sodium Chloride 0.9% 100 ML IV SCH ×2 (04:25→16:08)
[2020-05-22] MEDS: Clotrimazole 10 MG Troche PO SCH ×5 (05:59→21:06)
[2020-05-22] MEDS: [UNRECOGNIZED DRUG - OTHER] PO SCH (09:30)
[2020-05-22] MEDS: [UNRECOGNIZED DRUG - OTHER] PO SCH (09:30)
[2020-05-22] MEDS: Gabapentin 300 MG Cap PO SCH ×3 (09:30→20:41)
[2020-05-22] MEDS: Lactobacillus Rhamnosus GG (Probiotic) Cap PO SCH ×2 (09:31→20:41)
[2020-05-22] MEDS: Apixaban 5 MG Tab PO SCH ×2 (09:32→20:41)
[2020-05-22] MEDS: metFORMIN 500 MG Tab PO SCH ×2 (09:32→20:41)
[2020-05-22] MEDS: Insulin Lispro 100 Unit/ML 3 ML KwikPen SUBCUT SCH ×4 (09:44→21:06)
--- NOTE | 2020-05-22 12:42 | PCM.PN ---
- General Info Date of Service: 05/22/20 Subjective Update: No acute events overnight. Nausea is better and there has not been any vomiting. No significant pain in the right foot. He has not had any fevers. Second wound culture grew out staph aureus and enterococcus. Blood sugars are still mildly elevated but overall fairly well controlled. He was able to get up and walk around a decent distance. He is having a fair amount of drainage from the right foot wound. White count is stable. Functional Status: Reports: Pain Controlled, Tolerating Diet - Review of Systems General: Denies: Fever Gastrointestinal: Denies: Abdominal Pain, Nausea - Patient Data Vitals - Most Recent: Last Vital Signs Temp 36.9 C 05/22/20 11:06 Pulse 65 05/22/20 11:06 Resp 16 05/22/20 11:06 BP 169/80 H 05/22/20 11:06 Pulse Ox 96 05/22/20 11:06 Weight - Most Recent: 101.605 kg I&O - Last 24 Hours: Intake & Output 05/21/20 05/22/20 05/22/20 22:59 06:59 14:59 Intake Total 260 150 Output Total 800 200 350 Balance -540 -50 -350 Lab Results Last 24 Hours: Laboratory Results - last 24 hr 05/21/20 05/21/20 05/22/20 Range/Units 16:30 21:00 04:10 WBC 14.1 H (4.5-11.0) K/uL RBC 4.51 (4.30-5.90) M/uL Hgb 12.7 (12.0-15.0) g/dL Hct 38.8 L (40.0-54.0) % MCV 86 (80-98) fL MCH 28 (27-31) pg MCHC 33 (32-36) % Plt Count 353 (150-400) K/uL Sodium (140-148) mmol/L Potassium (3.6-5.2) mmol/L Chloride (100-108) mmol/L Carbon Dioxide (21-32) mmol/L Anion Gap (5.0-14.0) mmol/L BUN (7-18) mg/dL Creatinine (0.8-1.3) mg/dL Est Cr Clr Drug Dosing mL/min Estimated GFR (MDRD) (>60) Glucose (74-106) mg/dL POC Glucose 224 H 248 H (74-106) MG/DL Calcium (8.5-10.1) mg/dL 05/22/20 05/22/20 05/22/20 Range/Units 04:10 07:30 11:30 WBC (4.5-11.0) K/uL RBC (4.30-5.90) M/uL Hgb (12.0-15.0) g/dL Hct (40.0-54.0) % MCV (80-98) fL MCH (27-31) pg MCHC (32-36) % Plt Count (150-400) K/uL Sodium 134 L (140-148) mmol/L Potassium 3.5 L (3.6-5.2) mmol/L Chloride 101 (100-108) mmol/L Carbon Dioxide 25 (21-32) mmol/L Anion Gap 11.5 (5.0-14.0) mmol/L BUN 10 (7-18) mg/dL Creatinine 0.9 (0.8-1.3) mg/dL Est Cr Clr Drug Dosing 70.88 mL/min Estimated GFR (MDRD) > 60 (>60) Glucose 204 H (74-106) mg/dL POC Glucose 237 H 233 H (74-106) MG/DL Calcium 8.4 L (8.5-10.1) mg/dL Kenneth Results Last 24 Hours: Microbiology 05/19/20 13:30 Gram Stain - Final Foot, Right Wound Culture - Final Staphylococcus Aureus Enterococcus Faecalis Med Orders - Current: Current Medications Acetaminophen (Tylenol) 650 mg PO Q4H PRN PRN Reason: Pain (Mild 1-3)/fever Last Admin: 05/21/20 01:06 Dose: 650 mg Documented by: Amitriptyline HCl (Elavil) 25 mg PO BEDTIME [facility] Last Admin: 05/21/20 21:01 Dose: 25 mg Documented by: Apixaban (Eliquis) 5 mg PO BID [facility] Last Admin: 05/22/20 09:32 Dose: 5 mg Documented by: Calcium Carbonate/Glycine (Tums) 1,000 mg PO Q2H PRN PRN Reason: Indigestion Last Admin: 05/18/20 20:05 Dose: 1,000 mg Documented by: Clotrimazole (Mycelex) 10 mg PO 5XDAY [facility] Last Admin: 05/22/20 09:33 Dose: 10 mg Documented by: Gabapentin (Neurontin) 600 mg PO TID [facility] Last Admin: 05/22/20 09:30 Dose: Not Given Documented by: Hydromorphone HCl (Dilaudid) 0.5 mg IVPUSH Q2H PRN PRN Reason: Pain (severe 7-10) Last Admin: 05/20/20 05:58 Dose: 0.5 mg Documented by: Ceftazidime 1 gm/ Sodium (Chloride) 50 mls @ 100 mls/hr IV Q8HR [facility] Last Admin: 05/22/20 05:59 Dose: 100 mls/hr Documented by: Doxycycline Hyclate 100 mg/ (Sodium Chloride) 100 mls @ 100 mls/hr IV Q12H [facility] Last Admin: 05/22/20 04:25 Dose: 100 mls/hr Documented by: Insulin Human Lispro (Humalog) 0 unit SUBCUT QIDACANDBED [facility]; Protocol Last Admin: 05/22/20 11:40 Dose: 4 units Documented by: Lactobacillus Rhamnosus (Culturelle) 1 cap PO BID [facility] Last Admin: 05/22/20 09:31 Dose: 1 cap Documented by: Lisinopril (Prinivil) 10 mg PO BEDTIME [facility] Last Admin: 05/21/20 21:03 Dose: 10 mg Documented by: Lorazepam (Ativan) 0.5 mg IVPUSH Q4H PRN PRN Reason: Nausea/Vomiting Last Admin: 05/19/20 02:15 Dose: 0.5 mg Documented by: Magnesium Hydroxide (Milk Of Magnesia) 30 ml PO Q12H PRN PRN Reason: Constipation Last Admin: 05/21/20 10:18 Dose: 30 ml Documented by: Melatonin (Melatonin) 9 mg PO BEDTIME PRN PRN Reason: Insomnia Last Admin: 05/21/20 21:17 Dose: 9 mg Documented by: Metformin HCl (Glucophage) 1,000 mg PO BID [facility] Last Admin: 05/22/20 09:32 Dose: 1,000 mg Documented by: Ondansetron HCl (Zofran) 4 mg IV Q6H PRN PRN Reason: Nausea/Vomiting Last Admin: 05/20/20 05:59 Dose: 4 mg Documented by: Ondansetron HCl (Zofran Odt) 4 mg PO Q4H PRN PRN Reason: Nausea able to take PO Last Admin: 05/21/20 10:18 Dose: 4 mg Documented by: Oxycodone HCl (Oxycodone) 5 - 10 mg PO Q4H PRN PRN Reason: Pain Last Admin: 05/17/20 11:41 Dose: 10 mg Documented by: Daily Multinutrient (Supplement (Ptom)) 1 each PO DAILY [facility] Last Admin: 05/22/20 09:30 Dose: Not Given Documented by: Vision Essentials (Gold (Ptom)) 4 each PO DAILY [facility] Last Admin: 05/22/20 09:30 Dose: Not Given Documented by: Senna/Docusate Sodium (Senna Plus) 1 tab PO BID PRN PRN Reason: Constipation Last Admin: 05/21/20 10:18 Dose: 1 tab Documented by: Discontinued Medications Fentanyl (Sublimaze) Confirm Administered Dose 100 mcg .ROUTE .STK-MED ONE Stop: 05/20/20 09:32 Gadoteridol (Prohance) 20 ml IV . DIRECTED [facility] Stop: 05/17/20 18:00 Last Admin: 05/17/20 10:10 Dose: 20 ml Documented by: Sodium Chloride (Normal Saline) 1,000 mls @ 100 mls/hr IV ASDIRECTED [facility] Last Admin: 05/17/20 05:42 Dose: 100 mls/hr Documented by: Vancomycin HCl 1.5 gm/ Sodium (Chloride) 250 mls @ 150 mls/hr IV Q12H [facility] Last Admin: 05/20/20 15:51 Dose: Not Given Documented by: Sodium Chloride (Normal Saline) 1,000 mls @ 25 mls/hr IV ASDIRECTED [facility] Last Infusion: 05/19/20 03:40 Dose: 125 mls/hr Documented by: Sodium Chloride (Normal Saline) 1,000 mls @ 125 mls/hr IV ASDIRECTED [facility] Last Admin: 05/19/20 17:09 Dose: 125 mls/hr Documented by: Sodium Chloride (Normal Saline) 85 mls @ 3 mls/sec IV ONETIME ONE Stop: 05/19/20 12:05 Last Admin: 05/19/20 12:26 Dose: 3 mls/sec Documented by: Lactated Ringer's (Ringers, Lactated) Confirm Administered Dose 1,000 mls @ as directed .ROUTE .STK-MED ONE Stop: 05/20/20 10:12 Fluconazole/Sodium Chloride (200 mg/ Premix) 100 mls @ 100 mls/hr IV Q24H [facility] Stop: 05/21/20 12:59 Last Admin: 05/21/20 11:40 Dose: 100 mls/hr Documented by: Insulin Human Lispro (Humalog) 0 unit SUBCUT QIDACANDBED [facility]; Protocol Last Admin: 05/20/20 09:22 Dose: 2 units Documented by: Insulin Human Lispro (Humalog) 10 unit SUBCUT ONETIME ONE Stop: 05/19/20 21:06 Last Admin: 05/19/20 21:26 Dose: 10 units Documented by: Iopamidol (Isovue-300 (61%)) 150 ml IV . DIRECTED [facility] Last Admin: 05/19/20 12:25 Dose: 150 ml Documented by: Lidocaine HCl (Xylocaine 1%) 20 ml INJECT ONETIME ONE Stop: 05/17/20 09:01 Last Admin: 05/17/20 09:32 Dose: 20 ml Documented by: Lorazepam (Ativan) 0.5 mg IVPUSH ONETIME ONE Stop: 05/19/20 01:55 Last Admin: 05/19/20 02:16 Dose: 0.5 mg Documented by: Lorazepam (Ativan) 1 mg IVPUSH ONETIME ONE Stop: 05/19/20 03:26 Last Admin: 05/19/20 05:28 Dose: Not Given Documented by: Ondansetron HCl (Zofran Odt) 4 mg PO Q6H PRN PRN Reason: Nausea able to take PO Last Admin: 05/16/20 19:37 Dose: 4 mg Documented by: Ondansetron HCl (Zofran) 4 mg IVPUSH ONETIME ONE Stop: 05/19/20 00:49 Last Admin: 05/19/20 01:03 Dose: 4 mg Documented by: Propofol (Diprivan 20 Ml) Confirm Administered Dose 200 mg .ROUTE .STK-MED ONE Stop: 05/20/20 09:33 Sodium Chloride (Saline Flush) 10 ml FLUSH ONETIME PRN PRN Reason: PER RADIOLOGY PROTOCOL Last Admin: 05/19/20 12:25 Dose: 10 ml Documented by: - Exam Quality Assessment: No: Supplemental Oxygen General: Alert, Oriented, Cooperative, No Acute Distress Lungs: Normal Respiratory Effort Cardiovascular: Regular Rate, Regular Rhythm GI/Abdominal Exam: Soft, No Distention Extremities: Pedal Edema (right foot ) Skin: Rash (erythema distal half of right foot ) Wound/Incisions: Drainage Psy/Mental Status: Alert, Normal Affect Sepsis Event Note - Evaluation Sepsis Screening Result: Sepsis Risk - Focused Exam Vital Signs: Vital Signs Temp Pulse Resp BP Pulse Ox 05/22/20 11:06 36.9 C 65 16 169/80 H 96 05/22/20 07:47 35.9 C L 68 16 158/90 H 96 05/22/20 02:00 36.5 C 71 16 180/80 H 95 - Problem List & Annotations (1) Cellulitis of foot, right SNOMED Code(s): 150219070 Code(s): L03.115 - CELLULITIS OF RIGHT LOWER LIMB Status: Acute Current Visit: Yes (2) Abscess of right foot SNOMED Code(s): 03108539408983775 Code(s): L02.611 - CUTANEOUS ABSCESS OF RIGHT FOOT Status: Acute Current Visit: Yes (3) Sepsis SNOMED Code(s): 83208819 Code(s): A41.9 - SEPSIS, UNSPECIFIED ORGANISM Status: Acute Current Visit: Yes Qualifiers: Sepsis type: sepsis due to unspecified organism Sepsis acute organ dysfunction status: without acute organ dysfunction Qualified Code(s): A41.9 - Sepsis, unspecified organism (4) Type 2 diabetes mellitus SNOMED Code(s): 70039730 Code(s): E11.9 - TYPE 2 DIABETES MELLITUS WITHOUT COMPLICATIONS Status: Chronic Current Visit: Yes Qualifiers: Diabetes mellitus intermediate teacher insulin use: without intermediate teacher use Diabetes mellitus complication status: with neurologic complications Diabetes mellitus complication detail: with polyneuropathy Qualified Code(s): E11.42 - Type 2 diabetes mellitus with diabetic polyneuropathy (5) Chronic atrial fibrillation SNOMED Code(s): 652501255 Code(s): I48.20 - CHRONIC ATRIAL FIBRILLATION, UNSPECIFIED Status: Chronic Current Visit: Yes (6) Esophageal candidiasis SNOMED Code(s): 93355778 Code(s): B37.81 - CANDIDAL ESOPHAGITIS Status: Acute Current Visit: Yes - Problem List Review Problem List Initiated/Reviewed/Updated: Yes - My Orders Last 24 Hours: My Active Orders 05/22/20 12:41 Potassium Chloride [Klor-Con M20] 40 meq PO ONETIME ONE 05/22/20 16:30 GLUCOSE POC LAB TO COLLECT JPM [POC] QIDACANDBED 05/22/20 Dinner Consistent Carbohydrate Diet [DIET] 05/22/20 18:00 cefTRIAXone [Rocephin] 1 gm Sodium Chloride 0.9% [Normal Saline] 50 ml IV Q12H 05/22/20 21:00 GLUCOSE POC LAB TO COLLECT JPM [POC] QIDACANDBED 05/23/20 05:00 BASIC METABOLIC PANEL,BMP [CHEM] Timed CBC W/O DIFF,HEMOGRAM [HEME] Timed (1) 05/23/20 07:00 PT Evaluation and Treatment [CONS] Routine 05/23/20 07:30 GLUCOSE POC LAB TO COLLECT JPM [POC] QIDACANDBED 05/23/20 11:30 GLUCOSE POC LAB TO COLLECT JPM [POC] QIDACANDBED 05/23/20 16:30 GLUCOSE POC LAB TO COLLECT JPM [POC] QIDACANDBED 05/23/20 21:00 GLUCOSE POC LAB TO COLLECT JPM [POC] QIDACANDBED 05/24/20 07:30 GLUCOSE POC LAB TO COLLECT JPM [POC] QIDACANDBED 05/24/20 11:30 GLUCOSE POC LAB TO COLLECT JPM [POC] QIDACANDBED 05/24/20 16:30 GLUCOSE POC LAB TO COLLECT JPM [POC] QIDACANDBED 05/24/20 21:00 GLUCOSE POC LAB TO COLLECT JPM [POC] QIDACANDBED 05/25/20 07:30 GLUCOSE POC LAB TO COLLECT JPM [POC] QIDACANDBED 05/25/20 11:30 GLUCOSE POC LAB TO COLLECT JPM [POC] QIDACANDBED 05/25/20 16:30 GLUCOSE POC LAB TO COLLECT JPM [POC] QIDACANDBED 05/25/20 21:00 GLUCOSE POC LAB TO COLLECT JPM [POC] QIDACANDBED 05/26/20 07:30 GLUCOSE POC LAB TO COLLECT JPM [POC] QIDACANDBED 05/26/20 11:30 GLUCOSE POC LAB TO COLLECT JPM [POC] QIDACANDBED 05/26/20 16:30 GLUCOSE POC LAB TO COLLECT JPM [POC] QIDACANDBED 05/26/20 21:00 GLUCOSE POC LAB TO COLLECT JPM [POC] QIDACANDBED 05/27/20 07:30 GLUCOSE POC LAB TO COLLECT JPM [POC] QIDACANDBED 05/27/20 11:30 GLUCOSE POC LAB TO COLLECT JPM [POC] QIDACANDBED 05/27/20 16:30 GLUCOSE POC LAB TO COLLECT JPM [POC] QIDACANDBED 05/27/20 21:00 GLUCOSE POC LAB TO COLLECT JPM [POC] QIDACANDBED 05/28/20 07:30 GLUCOSE POC LAB TO COLLECT JPM [POC] QIDACANDBED 05/28/20 11:30 GLUCOSE POC LAB TO COLLECT JPM [POC] QIDACANDBED 05/28/20 16:30 GLUCOSE POC LAB TO COLLECT JPM [POC] QIDACANDBED 05/28/20 21:00 GLUCOSE POC LAB TO COLLECT JPM [POC] QIDACANDBED - Plan Plan:: ASSESSMENT AND PLAN - Cellulitis and abscess of the right foot with sepsis-sepsis has resolved. Slowly getting better. Wound cultures have grown out staph epidermidis, strep viridans, staph aureus and enterococcus. NAN testing suggested significant peripheral vascular disease. -Antibiotic coverage with ceftriaxone and doxycycline -Surgical consultation with Dr. Lora -Saline lock IV -Pain control -Daily wound care -Outpatient follow-up for peripheral vascular disease Esophageal candidiasis-suspected based on EGD results. Symptoms are much better today. -Mycelex troches 5 times a day -Symptomatic management Type 2 diabetes mellitus-moderate hyperglycemia has persisted, probably related to his inflammation from the infection. Hemoglobin A1c 8.3. -Continue home medications -Medium-dose sliding scale insulin with his hyperglycemia probably related to the infection -A1c in the morning Chronic atrial fibrillation-currently rate controlled. -Continue rate control -Continue anticoagulation Maintenance issues - - DVT prophylaxis -apixaban - GI prophylaxis -not indicated - Nutrition -full liquids Disposition -I would anticipate discharge home with home care after the hospital stay Primary care physician - Dr Vero Figueredo M.D.
[2020-05-22] MEDS ORDERED: Potassium Chloride 20 MEQ Tab.ER PO ONE (13:00)
[2020-05-22] MEDS: cefTRIAXone 1 GM in Sodium Chloride 0.9% 50 ML IV SCH (17:28)
[2020-05-22] MEDS: Melatonin 3 MG Tab PO PRN (20:40)
[2020-05-22] MEDS: Amitriptyline 25 MG Tab PO SCH (20:41)
[2020-05-22] MEDS: Lisinopril 10 MG Tab PO SCH (20:41)
[2020-05-22] MEDS ORDERED: Cyclobenzaprine 10 MG Tab PO SCH (21:00)
[2020-05-23] MEDS: Doxycycline 100 MG in Sodium Chloride 0.9% 100 ML IV SCH ×2 (04:02→16:30)
[2020-05-23] MEDS: cefTRIAXone 1 GM in Sodium Chloride 0.9% 50 ML IV SCH ×2 (05:28→17:34)
[2020-05-23] MEDS: Clotrimazole 10 MG Troche PO SCH ×5 (05:34→21:28)
[2020-05-23] MEDS: Insulin Lispro 100 Unit/ML 3 ML KwikPen SUBCUT SCH ×4 (07:50→21:34)
[2020-05-23] MEDS: [UNRECOGNIZED DRUG - OTHER] PO SCH (09:43)
[2020-05-23] MEDS: Lactobacillus Rhamnosus GG (Probiotic) Cap PO SCH ×2 (09:44→21:28)
[2020-05-23] MEDS: metFORMIN 500 MG Tab PO SCH ×2 (09:44→21:28)
[2020-05-23] MEDS: Apixaban 5 MG Tab PO SCH ×2 (09:44→21:28)
[2020-05-23] MEDS: Gabapentin 300 MG Cap PO SCH ×3 (09:50→21:33)
[2020-05-23] MEDS: [UNRECOGNIZED DRUG - OTHER] PO SCH (09:50)
--- NOTE | 2020-05-23 11:32 | OR ---
DATE OF PROCEDURE: 05/20/2020 SURGEON: Alvaro Lora MD PROCEDURE: EGD. FINDINGS: 1. Polypoid-type lesion in duodenum (removed using cold biopsy forceps). 2. Linear-type plaque-like area in distal esophagus concerning for thrush (biopsied multiple times using cold biopsy forceps). COMPLICATIONS: None. DIRECTOR OF PUBLIC WORKS: None. ANESTHESIA: MAC. PREOPERATIVE DIAGNOSIS: Thickening of the esophagus on CT scan. POSTOPERATIVE DIAGNOSIS: Thickening of the esophagus on CT scan. RISKS: Risks, benefits, alternatives, and limitations including, but not limited to infection, bleeding, and perforation were explained to the patient, who wished to proceed. We also discussed false- positives and false-negatives. PROCEDURE IN DETAIL: The patient was placed in left lateral decubitus position. The EGD scope was introduced and advanced. Within the duodenum itself, there was a polypoid-type lesion. This was completely removed using cold biopsy forceps. No evidence of duodenitis or ulceration. The stomach itself did not show any evidence of gastritis or ulceration. The patient did have an approximately 2.5 cm hiatal hernia. The distal esophagus showed plaque-like lesions concerning for thrush. This was biopsied multiple times using cold biopsy forceps. The patient tolerated the procedure well. Alvaro Lora MD /[id number]
--- NOTE | 2020-05-23 13:31 | PCM.PN ---
- General Info Date of Service: 05/23/20 Subjective Update: Mr. Ponce has been stable since yesterday. Right foot and leg have slowly improved during hospitalization. There is still some erythema and significant swelling of the foot. Functional Status: Reports: Tolerating Diet, Ambulating, Urinating - Review of Systems General: Reports: Weakness. Denies: Fever, Chills Pulmonary: Reports: No Symptoms Cardiovascular: Reports: No Symptoms Gastrointestinal: Reports: No Symptoms - Patient Data Vitals - Most Recent: Last Vital Signs Temp 98.3 F 05/23/20 11:30 Pulse 75 05/23/20 11:30 Resp 18 05/23/20 11:30 BP 154/75 H 05/23/20 11:30 Pulse Ox 88 L 05/23/20 11:30 Weight - Most Recent: 224 lb I&O - Last 24 Hours: Intake & Output 05/22/20 05/23/20 05/23/20 22:59 06:59 14:59 Intake Total 100 150 480 Output Total 825 450 750 Balance -138 -079 -706 Lab Results Last 24 Hours: Laboratory Results - last 24 hr 05/22/20 05/22/20 05/23/20 Range/Units 16:30 21:00 04:00 WBC 12.4 H (4.5-11.0) K/uL RBC 4.64 (4.30-5.90) M/uL Hgb 12.9 (12.0-15.0) g/dL Hct 40.0 (40.0-54.0) % MCV 86 (80-98) fL MCH 28 (27-31) pg MCHC 32 (32-36) % Plt Count 367 (150-400) K/uL Sodium (140-148) mmol/L Potassium (3.6-5.2) mmol/L Chloride (100-108) mmol/L Carbon Dioxide (21-32) mmol/L Anion Gap (5.0-14.0) mmol/L BUN (7-18) mg/dL Creatinine (0.8-1.3) mg/dL Est Cr Clr Drug Dosing mL/min Estimated GFR (MDRD) (>60) Glucose (74-106) mg/dL POC Glucose 244 H 253 H (74-106) MG/DL Calcium (8.5-10.1) mg/dL 05/23/20 05/23/20 05/23/20 Range/Units 04:00 07:30 11:38 WBC (4.5-11.0) K/uL RBC (4.30-5.90) M/uL Hgb (12.0-15.0) g/dL Hct (40.0-54.0) % MCV (80-98) fL MCH (27-31) pg MCHC (32-36) % Plt Count (150-400) K/uL Sodium 133 L (140-148) mmol/L Potassium 3.8 (3.6-5.2) mmol/L Chloride 100 (100-108) mmol/L Carbon Dioxide 25 (21-32) mmol/L Anion Gap 11.8 (5.0-14.0) mmol/L BUN 10 (7-18) mg/dL Creatinine 0.9 (0.8-1.3) mg/dL Est Cr Clr Drug Dosing 70.88 mL/min Estimated GFR (MDRD) > 60 (>60) Glucose 190 H (74-106) mg/dL POC Glucose 241 H 224 H (74-106) MG/DL Calcium 8.5 (8.5-10.1) mg/dL Med Orders - Current: Current Medications Acetaminophen (Tylenol) 650 mg PO Q4H PRN PRN Reason: Pain (Mild 1-3)/fever Last Admin: 05/21/20 01:06 Dose: 650 mg Documented by: Amitriptyline HCl (Elavil) 25 mg PO BEDTIME [facility] Last Admin: 05/22/20 20:41 Dose: 25 mg Documented by: Apixaban (Eliquis) 5 mg PO BID [facility] Last Admin: 05/23/20 09:44 Dose: 5 mg Documented by: Calcium Carbonate/Glycine (Tums) 1,000 mg PO Q2H PRN PRN Reason: Indigestion Last Admin: 05/18/20 20:05 Dose: 1,000 mg Documented by: Clotrimazole (Mycelex) 10 mg PO 5XDAY [facility] Last Admin: 05/23/20 09:44 Dose: 10 mg Documented by: Gabapentin (Neurontin) 600 mg PO TID [facility] Last Admin: 05/23/20 09:50 Dose: Not Given Documented by: Hydromorphone HCl (Dilaudid) 0.5 mg IVPUSH Q2H PRN PRN Reason: Pain (severe 7-10) Last Admin: 05/20/20 05:58 Dose: 0.5 mg Documented by: Doxycycline Hyclate 100 mg/ (Sodium Chloride) 100 mls @ 100 mls/hr IV Q12H [facility] Last Admin: 05/23/20 04:02 Dose: 100 mls/hr Documented by: Ceftriaxone Sodium 1 gm/ (Sodium Chloride) 50 mls @ 100 mls/hr IV Q12H [facility] Last Admin: 05/23/20 05:28 Dose: 100 mls/hr Documented by: Insulin Human Lispro (Humalog) 0 unit SUBCUT QIDACANDBED [facility]; Protocol Last Admin: 05/23/20 11:54 Dose: 4 units Documented by: Lactobacillus Rhamnosus (Culturelle) 1 cap PO BID [facility] Last Admin: 05/23/20 09:44 Dose: 1 cap Documented by: Lisinopril (Prinivil) 10 mg PO BEDTIME [facility] Last Admin: 05/22/20 20:41 Dose: 10 mg Documented by: Lorazepam (Ativan) 0.5 mg IVPUSH Q4H PRN PRN Reason: Nausea/Vomiting Last Admin: 05/19/20 02:15 Dose: 0.5 mg Documented by: Magnesium Hydroxide (Milk Of Magnesia) 30 ml PO Q12H PRN PRN Reason: Constipation Last Admin: 05/21/20 10:18 Dose: 30 ml Documented by: Melatonin (Melatonin) 9 mg PO BEDTIME PRN PRN Reason: Insomnia Last Admin: 05/22/20 20:40 Dose: 9 mg Documented by: Metformin HCl (Glucophage) 1,000 mg PO BID [facility] Last Admin: 05/23/20 09:44 Dose: 1,000 mg Documented by: Ondansetron HCl (Zofran) 4 mg IV Q6H PRN PRN Reason: Nausea/Vomiting Last Admin: 05/20/20 05:59 Dose: 4 mg Documented by: Ondansetron HCl (Zofran Odt) 4 mg PO Q4H PRN PRN Reason: Nausea able to take PO Last Admin: 05/21/20 10:18 Dose: 4 mg Documented by: Oxycodone HCl (Oxycodone) 5 - 10 mg PO Q4H PRN PRN Reason: Pain Last Admin: 05/17/20 11:41 Dose: 10 mg Documented by: Daily Multinutrient (Supplement (Ptom)) 1 each PO DAILY [facility] Last Admin: 05/23/20 09:50 Dose: Not Given Documented by: Vision Essentials (Gold (Ptom)) 4 each PO DAILY [facility] Last Admin: 05/23/20 09:43 Dose: 2 each Documented by: Senna/Docusate Sodium (Senna Plus) 1 tab PO BID PRN PRN Reason: Constipation Last Admin: 05/22/20 20:40 Dose: 1 tab Documented by: Discontinued Medications Cyclobenzaprine HCl (Flexeril) 10 mg PO TID [facility] Fentanyl (Sublimaze) Confirm Administered Dose 100 mcg .ROUTE .STK-MED ONE Stop: 05/20/20 09:32 Gadoteridol (Prohance) 20 ml IV . DIRECTED [facility] Stop: 05/17/20 18:00 Last Admin: 05/17/20 10:10 Dose: 20 ml Documented by: Sodium Chloride (Normal Saline) 1,000 mls @ 100 mls/hr IV ASDIRECTED [facility] Last Admin: 05/17/20 05:42 Dose: 100 mls/hr Documented by: Ceftazidime 1 gm/ Sodium (Chloride) 50 mls @ 100 mls/hr IV Q8HR [facility] Last Admin: 05/22/20 05:59 Dose: 100 mls/hr Documented by: Vancomycin HCl 1.5 gm/ Sodium (Chloride) 250 mls @ 150 mls/hr IV Q12H [facility] Last Admin: 05/20/20 15:51 Dose: Not Given Documented by: Sodium Chloride (Normal Saline) 1,000 mls @ 25 mls/hr IV ASDIRECTED [facility] Last Infusion: 05/19/20 03:40 Dose: 125 mls/hr Documented by: Sodium Chloride (Normal Saline) 1,000 mls @ 125 mls/hr IV ASDIRECTED [facility] Last Admin: 05/19/20 17:09 Dose: 125 mls/hr Documented by: Sodium Chloride (Normal Saline) 85 mls @ 3 mls/sec IV ONETIME ONE Stop: 05/19/20 12:05 Last Admin: 05/19/20 12:26 Dose: 3 mls/sec Documented by: Lactated Ringer's (Ringers, Lactated) Confirm Administered Dose 1,000 mls @ as directed .ROUTE .STK-MED ONE Stop: 05/20/20 10:12 Fluconazole/Sodium Chloride (200 mg/ Premix) 100 mls @ 100 mls/hr IV Q24H [facility] Stop: 05/21/20 12:59 Last Admin: 05/21/20 11:40 Dose: 100 mls/hr Documented by: Insulin Human Lispro (Humalog) 0 unit SUBCUT QIDACANDBED [facility]; Protocol Last Admin: 05/20/20 09:22 Dose: 2 units Documented by: Insulin Human Lispro (Humalog) 10 unit SUBCUT ONETIME ONE Stop: 05/19/20 21:06 Last Admin: 05/19/20 21:26 Dose: 10 units Documented by: Iopamidol (Isovue-300 (61%)) 150 ml IV . DIRECTED [facility] Last Admin: 05/19/20 12:25 Dose: 150 ml Documented by: Lidocaine HCl (Xylocaine 1%) 20 ml INJECT ONETIME ONE Stop: 05/17/20 09:01 Last Admin: 05/17/20 09:32 Dose: 20 ml Documented by: Lorazepam (Ativan) 0.5 mg IVPUSH ONETIME ONE Stop: 05/19/20 01:55 Last Admin: 05/19/20 02:16 Dose: 0.5 mg Documented by: Lorazepam (Ativan) 1 mg IVPUSH ONETIME ONE Stop: 05/19/20 03:26 Last Admin: 05/19/20 05:28 Dose: Not Given Documented by: Ondansetron HCl (Zofran Odt) 4 mg PO Q6H PRN PRN Reason: Nausea able to take PO Last Admin: 05/16/20 19:37 Dose: 4 mg Documented by: Ondansetron HCl (Zofran) 4 mg IVPUSH ONETIME ONE Stop: 05/19/20 00:49 Last Admin: 05/19/20 01:03 Dose: 4 mg Documented by: Potassium Chloride (Klor-Con M20) 40 meq PO ONETIME ONE Stop: 05/22/20 13:01 Last Admin: 05/22/20 13:45 Dose: 40 meq Documented by: Propofol (Diprivan 20 Ml) Confirm Administered Dose 200 mg .ROUTE .STK-MED ONE Stop: 05/20/20 09:33 Sodium Chloride (Saline Flush) 10 ml FLUSH ONETIME PRN PRN Reason: PER RADIOLOGY PROTOCOL Last Admin: 05/19/20 12:25 Dose: 10 ml Documented by: - Exam Quality Assessment: DVT Prophylaxis General: Alert, Oriented, Cooperative, Mild Distress Lungs: Clear to Auscultation, Normal Respiratory Effort Cardiovascular: Regular Rate, Regular Rhythm, No Murmurs GI/Abdominal Exam: Soft, Non-Tender, No Organomegaly, No Distention Sepsis Event Note - Evaluation Sepsis Screening Result: No Definite Risk - Focused Exam Vital Signs: Vital Signs Temp Pulse Resp BP Pulse Ox 05/23/20 11:30 98.3 F 75 18 154/75 H 88 L 05/23/20 03:00 15 - Problem List Review Problem List Initiated/Reviewed/Updated: Yes - My Orders Last 24 Hours: My Active Orders 05/23/20 11:20 Central Line Assessment [RC] QSHIFT Consult to PICC Team [CONS] Routine Central Venous Line Insertion [OM.PC] Routine 05/24/20 05:00 CBC WITH AUTO DIFF [HEME] Timed - Plan Plan:: ASSESSMENT AND PLAN - Cellulitis and abscess of the right foot with sepsis-sepsis has resolved. Slowly getting better. Wound cultures have grown out staph epidermidis, strep viridans, staph aureus and enterococcus. NAN testing suggested significant peripheral vascular disease. -Antibiotic coverage with ceftriaxone and doxycycline, and for discharged home with IV antibiotic therapy for 2 weeks -PICC line placement -Surgical consultation with Dr. Lora -Saline lock IV -Pain control -Daily wound care -Outpatient follow-up for peripheral vascular disease Esophageal candidiasis-suspected based on EGD results. Symptoms are much better today. -Mycelex troches 5 times a day -Symptomatic management Type 2 diabetes mellitus-moderate hyperglycemia has persisted, probably related to his inflammation from the infection. Hemoglobin A1c 8.3. -Continue home medications -Medium-dose sliding scale insulin with his hyperglycemia probably related to the infection -A1c in the morning Chronic atrial fibrillation-currently rate controlled. -Continue rate control -Continue anticoagulation Maintenance issues - - DVT prophylaxis -apixaban - GI prophylaxis -not indicated - Nutrition -full liquids Disposition -I would anticipate discharge home with home care after the hospital stay Primary care physician - Dr Pham
[2020-05-23] MEDS: Melatonin 3 MG Tab PO PRN (21:27)
[2020-05-23] MEDS: Amitriptyline 25 MG Tab PO SCH (21:28)
[2020-05-23] MEDS: Lisinopril 10 MG Tab PO SCH (21:29)
[2020-05-24] MEDS: Doxycycline 100 MG in Sodium Chloride 0.9% 100 ML IV SCH (04:22)
[2020-05-24] MEDS: cefTRIAXone 1 GM in Sodium Chloride 0.9% 50 ML IV SCH (05:41)
[2020-05-24] MEDS: Clotrimazole 10 MG Troche PO SCH ×3 (06:24→13:30)
[2020-05-24] MEDS: Insulin Lispro 100 Unit/ML 3 ML KwikPen SUBCUT SCH ×2 (07:33→11:55)
[2020-05-24] MEDS: Apixaban 5 MG Tab PO SCH (08:24)
[2020-05-24] MEDS: metFORMIN 500 MG Tab PO SCH (08:24)
[2020-05-24] MEDS: [UNRECOGNIZED DRUG - OTHER] PO SCH (08:24)
[2020-05-24] MEDS: Lactobacillus Rhamnosus GG (Probiotic) Cap PO SCH (08:24)
[2020-05-24] MEDS: Gabapentin 300 MG Cap PO SCH ×2 (08:24→13:30)
[2020-05-24] MEDS: [UNRECOGNIZED DRUG - OTHER] PO SCH (08:25)
--- NOTE | 2020-05-24 10:48 | PN ---
DATE OF SERVICE: 05/24/2020 SUBJECTIVE: The patient continues to improve. No nausea, vomiting, shortness of breath, or chest pain. Afebrile per nursing report. Right foot wound is improving significantly. The infection seems responsive to antibiotics. ASSESSMENT AND PLAN: Right foot infection. This was recommended to Medicine Service. The patient to be discharged in the next 48 hours and sent home on IV antibiotics for approximately 2 weeks' duration. Alvaro Lora MD /[id number]
--- NOTE | 2020-05-24 13:31 | PCM.DCSUM1 ---
Discharge Summary - Hospital Course Brief History: Mr. Ponce is a 79-year-old gentleman who was admitted as a transfer from the emergency department in [place], with severe infection of his right foot and underlying type 2 diabetes mellitus. - Discharge Data Discharge Date: 05/24/20 Discharge Disposition: Home, Self-Care 01 Condition: Fair - Referral to Home Health Date of Face to Face Encounter: 05/24/20 Reason for Homebound Status: Diabetic foot infection Primary Care Physician: PCP None Skilled Need: Nursing care for regular dressing changes - Patient Summary/Data Consults: Consultations 05/17/20 08:30 Consult to Physician [CONS] Routine Consulting Provider: Alvaro Lora Call Completed to Consulting Physician: Yes Reason for Consult: right foot abscess Person Notified: RW Date Notified: 05/17/20 Special Instructions: will see today 05/23/20 07:00 PT Evaluation and Treatment [CONS] Routine Please Evaluate and Treat. PT Reason for Consult: Strengthening This query below is only for informational purposes and is not editable. Admission Diagnosis/Problem: Cellulitis of right foot 05/23/20 11:20 Consult to PICC Team [CONS] Routine Comment: Physician Instructions: Hospital Course: Mr. Ponce was transferred from the emergency room in [place] to our hospital for direct admission and management of right lower extremity cellulitis and possibly osteomyelitis. He reports several days of progressive decrease in energy and appetite as well as increasing redness, pain and swelling of his right foot. He has had temperatures as high as 102 degrees at home and has had some shaking chills. He does report sinus drainage which causes him to cough occasionally. He does not feel short of breath and has not had chest pain. No change in bowel or bladder habits. He has not been eating or drinking well the past few days. He is not aware of any injury to his foot. He is complaining of intermittent sharp and severe stabbing pains that shoot through his foot. They seem to come and go without any obvious trigger. In the emergency room in [place] he was noted to have a white blood cell count of 19,000 as well as an elevated procalcitonin and a very elevated CRP. Chest x-ray was clear and C OVID19 testing was negative. X-ray of the right foot showed some possible inflammatory or potentially infectious/osteomyelitis changes at the first MTP. IV antibiotics were initiated and the patient was transferred here for further management because they were at capacity. He was continued on IV antibiotics and given IV fluids for hydration. He was seen and evaluated by Dr. Lora for surgical and wound consultation. He was taken to the operating room twice, on the and 19 May for debridement of the wound. Cultures were obtained and did grow out staph epidermidis, staph aureus, and enterococcus. Antibiotics were changed to ceftriaxone and doxycycline based on sensitivities. Of the foot was obtained and showed no evidence of underlying osteomyelitis. Cellulitis gradually improved and had essentially resolved by the time of discharge. Blood glucose levels were elevated on admission but did improve during hospital stay, as the infection improved. He will be discharged home and will return to the hospital daily for IV antibiotic therapy with levofloxacin, 750 mg IV daily. He will also be on doxycycline 100 mg p.o. twice daily for 2 weeks. Dressing changes will be performed every 2 to 3 days and he will have home care services to help with dressing changes. Follow-up appointment will be scheduled with his primary care provider within 1 week, BMP and CBC should be obtained at the time of follow-up appointment. Follow-up appointment will be scheduled with Dr. Lora in 1 week. - Patient Instructions Diet: Diabetic Diet Activity: As Tolerated Other/Special Instructions: Return to the hospital daily for outpatient antibiotic therapy with levofloxacin 750 mg IV every 24 hours, a total of 14 days. Please arrange for home care services for dressing changes after discharge from the hospital. Please schedule follow-up appointment with Dr. Lora in 1 week. Please schedule follow-up appointment with primary care provider within 1 week. CBC and BMP should be obtained at the time of primary care follow-up. - Discharge Plan *PRESCRIPTION DRUG MONITORING PROGRAM REVIEWED*: Not Applicable *COPY OF PRESCRIPTION DRUG MONITORING REPORT IN PATIENT RAE: Not Applicable Prescriptions/Med Rec: Lactobacillus Rhamnosus GG [Culturelle] 1 cap PO BID #60 cap Levofloxacin/Dextrose 5%-Water [Levaquin/D5W] 750 mg IV Q24H #14 bag Clotrimazole [Mycelex] 10 mg PO 5XDAY #50 flore[facility] Doxycycline [Vibra-Tabs] 100 mg PO Q12HR #28 tab Home Medications: Home Meds Amitriptyline [Elavil] 25 mg PO BEDTIME 05/16/20 [History] Apixaban [Eliquis] 5 mg PO BID 05/16/20 [History] Red Yeast Rice 1,200 mg PO BID 05/16/20 [History] lisinopriL [Lisinopril] 10 mg PO BEDTIME 05/16/20 [History] metFORMIN [Glucophage XR] 1,000 mg PO BID 05/16/20 [History] Clotrimazole [Mycelex] 10 mg PO 5XDAY #50 fl[facility] 05/24/20 [Rx] Doxycycline [Vibra-Tabs] 100 mg PO Q12HR #28 tab 05/24/20 [Rx] Lactobacillus Rhamnosus GG [Culturelle] 1 cap PO BID #60 cap 05/24/20 [Rx] Levofloxacin/Dextrose 5%-Water [Levaquin/D5W] 750 mg IV Q24H #14 bag 05/24/20 [Rx] Referrals: Ga Pham NP [Ordering Only Provider] - 05/30/20 10:20 am (Please arrive 15 minutes early to register for your appointment.) Alvaro Lora MD [Physician] - 06/02/20 11:00 am () - Discharge Summary/Plan Comment DC Time >30 min.: No - Patient Data Vitals - Most Recent: Last Vital Signs Temp 97.0 F 05/24/20 11:00 Pulse 83 05/24/20 11:00 Resp 18 05/24/20 11:00 BP 144/57 H 05/24/20 11:00 Pulse Ox 97 05/24/20 11:00 Weight - Most Recent: 224 lb I&O - Last 24 hours: Intake & Output 05/23/20 05/24/20 05/24/20 22:59 06:59 14:59 Intake Total 270 150 Output Total 1422 873 708 Balance -3967 -729 -155 Lab Results - Last 24 hrs: Laboratory Results - last 24 hr 05/23/20 05/23/20 05/24/20 Range/Units 16:30 21:16 06:45 WBC (4.5-11.0) K/uL RBC (4.30-5.90) M/uL Hgb (12.0-15.0) g/dL Hct (40.0-54.0) % MCV (80-98) fL MCH (27-31) pg MCHC (32-36) % Plt Count (150-400) K/uL Add Manual Diff Neutrophils % (Manual) (36-66) % Band Neutrophils % (5-11) % Lymphocytes % (Manual) (24-44) % Monocytes % (Manual) (2-6) % Eosinophils % (Manual) (2-4) % POC Glucose 193 H 259 H 176 H (74-106) MG/DL 05/24/20 05/24/20 Range/Units 06:45 11:46 WBC 11.2 H (4.5-11.0) K/uL RBC 4.45 (4.30-5.90) M/uL Hgb 12.6 (12.0-15.0) g/dL Hct 38.6 L (40.0-54.0) % MCV 87 (80-98) fL MCH 28 (27-31) pg MCHC 33 (32-36) % Plt Count 353 (150-400) K/uL Add Manual Diff Yes Neutrophils % (Manual) 63 (36-66) % Band Neutrophils % 2 L (5-11) % Lymphocytes % (Manual) 21 L (24-44) % Monocytes % (Manual) 11 H (2-6) % Eosinophils % (Manual) 3 (2-4) % POC Glucose 207 H (74-106) MG/DL Med Orders - Current: Current Medications Acetaminophen (Tylenol) 650 mg PO Q4H PRN PRN Reason: Pain (Mild 1-3)/fever Last Admin: 05/21/20 01:06 Dose: 650 mg Documented by: Amitriptyline HCl (Elavil) 25 mg PO BEDTIME [facility] Last Admin: 05/23/20 21:28 Dose: 25 mg Documented by: Apixaban (Eliquis) 5 mg PO BID [facility] Last Admin: 05/24/20 08:24 Dose: 5 mg Documented by: Calcium Carbonate/Glycine (Tums) 1,000 mg PO Q2H PRN PRN Reason: Indigestion Last Admin: 05/18/20 20:05 Dose: 1,000 mg Documented by: Clotrimazole (Mycelex) 10 mg PO 5XDAY [facility] Last Admin: 05/24/20 09:59 Dose: 10 mg Documented by: Gabapentin (Neurontin) 600 mg PO TID [facility] Last Admin: 05/24/20 08:24 Dose: 600 mg Documented by: Hydromorphone HCl (Dilaudid) 0.5 mg IVPUSH Q2H PRN PRN Reason: Pain (severe 7-10) Last Admin: 05/20/20 05:58 Dose: 0.5 mg Documented by: Doxycycline Hyclate 100 mg/ (Sodium Chloride) 100 mls @ 100 mls/hr IV Q12H [facility] Last Admin: 05/24/20 04:22 Dose: 100 mls/hr Documented by: Ceftriaxone Sodium 1 gm/ (Sodium Chloride) 50 mls @ 100 mls/hr IV Q12H [facility] Last Admin: 05/24/20 05:41 Dose: 100 mls/hr Documented by: Insulin Human Lispro (Humalog) 0 unit SUBCUT QIDACANDBED [facility]; Protocol Last Admin: 05/24/20 11:55 Dose: 4 units Documented by: Lactobacillus Rhamnosus (Culturelle) 1 cap PO BID [facility] Last Admin: 05/24/20 08:24 Dose: 1 cap Documented by: Lisinopril (Prinivil) 10 mg PO BEDTIME [facility] Last Admin: 05/23/20 21:29 Dose: 10 mg Documented by: Lorazepam (Ativan) 0.5 mg IVPUSH Q4H PRN PRN Reason: Nausea/Vomiting Last Admin: 05/19/20 02:15 Dose: 0.5 mg Documented by: Magnesium Hydroxide (Milk Of Magnesia) 30 ml PO Q12H PRN PRN Reason: Constipation Last Admin: 05/21/20 10:18 Dose: 30 ml Documented by: Melatonin (Melatonin) 9 mg PO BEDTIME PRN PRN Reason: Insomnia Last Admin: 05/23/20 21:27 Dose: 9 mg Documented by: Metformin HCl (Glucophage) 1,000 mg PO BID [facility] Last Admin: 05/24/20 08:24 Dose: 1,000 mg Documented by: Ondansetron HCl (Zofran) 4 mg IV Q6H PRN PRN Reason: Nausea/Vomiting Last Admin: 05/20/20 05:59 Dose: 4 mg Documented by: Ondansetron HCl (Zofran Odt) 4 mg PO Q4H PRN PRN Reason: Nausea able to take PO Last Admin: 05/21/20 10:18 Dose: 4 mg Documented by: Oxycodone HCl (Oxycodone) 5 - 10 mg PO Q4H PRN PRN Reason: Pain Last Admin: 05/17/20 11:41 Dose: 10 mg Documented by: Daily Multinutrient (Supplement (Ptom)) 1 each PO DAILY [facility] Last Admin: 05/24/20 08:24 Dose: 1 each Documented by: Vision Essentials (Gold (Ptom)) 4 each PO DAILY [facility] Last Admin: 05/24/20 08:25 Dose: 4 each Documented by: Senna/Docusate Sodium (Senna Plus) 1 tab PO BID PRN PRN Reason: Constipation Last Admin: 05/22/20 20:40 Dose: 1 tab Documented by: Discontinued Medications Cyclobenzaprine HCl (Flexeril) 10 mg PO TID [facility] Fentanyl (Sublimaze) Confirm Administered Dose 100 mcg .ROUTE .STK-MED ONE Stop: 05/20/20 09:32 Gadoteridol (Prohance) 20 ml IV . DIRECTED [facility] Stop: 05/17/20 18:00 Last Admin: 05/17/20 10:10 Dose: 20 ml Documented by: Sodium Chloride (Normal Saline) 1,000 mls @ 100 mls/hr IV ASDIRECTED [facility] Last Admin: 05/17/20 05:42 Dose: 100 mls/hr Documented by: Ceftazidime 1 gm/ Sodium (Chloride) 50 mls @ 100 mls/hr IV Q8HR [facility] Last Admin: 05/22/20 05:59 Dose: 100 mls/hr Documented by: Vancomycin HCl 1.5 gm/ Sodium (Chloride) 250 mls @ 150 mls/hr IV Q12H [facility] Last Admin: 05/20/20 15:51 Dose: Not Given Documented by: Sodium Chloride (Normal Saline) 1,000 mls @ 25 mls/hr IV ASDIRECTED [facility] Last Infusion: 05/19/20 03:40 Dose: 125 mls/hr Documented by: Sodium Chloride (Normal Saline) 1,000 mls @ 125 mls/hr IV ASDIRECTED [facility] Last Admin: 05/19/20 17:09 Dose: 125 mls/hr Documented by: Sodium Chloride (Normal Saline) 85 mls @ 3 mls/sec IV ONETIME ONE Stop: 05/19/20 12:05 Last Admin: 05/19/20 12:26 Dose: 3 mls/sec Documented by: Lactated Ringer's (Ringers, Lactated) Confirm Administered Dose 1,000 mls @ as directed .ROUTE .STK-MED ONE Stop: 05/20/20 10:12 Fluconazole/Sodium Chloride (200 mg/ Premix) 100 mls @ 100 mls/hr IV Q24H [facility] Stop: 05/21/20 12:59 Last Admin: 05/21/20 11:40 Dose: 100 mls/hr Documented by: Insulin Human Lispro (Humalog) 0 unit SUBCUT QIDACANDBED [facility]; Protocol Last Admin: 05/20/20 09:22 Dose: 2 units Documented by: Insulin Human Lispro (Humalog) 10 unit SUBCUT ONETIME ONE Stop: 05/19/20 21:06 Last Admin: 05/19/20 21:26 Dose: 10 units Documented by: Iopamidol (Isovue-300 (61%)) 150 ml IV . DIRECTED [facility] Last Admin: 05/19/20 12:25 Dose: 150 ml Documented by: Lidocaine HCl (Xylocaine 1%) 20 ml INJECT ONETIME ONE Stop: 05/17/20 09:01 Last Admin: 05/17/20 09:32 Dose: 20 ml Documented by: Lorazepam (Ativan) 0.5 mg IVPUSH ONETIME ONE Stop: 05/19/20 01:55 Last Admin: 05/19/20 02:16 Dose: 0.5 mg Documented by: Lorazepam (Ativan) 1 mg IVPUSH ONETIME ONE Stop: 05/19/20 03:26 Last Admin: 05/19/20 05:28 Dose: Not Given Documented by: Ondansetron HCl (Zofran Odt) 4 mg PO Q6H PRN PRN Reason: Nausea able to take PO Last Admin: 05/16/20 19:37 Dose: 4 mg Documented by: Ondansetron HCl (Zofran) 4 mg IVPUSH ONETIME ONE Stop: 05/19/20 00:49 Last Admin: 05/19/20 01:03 Dose: 4 mg Documented by: Potassium Chloride (Klor-Con M20) 40 meq PO ONETIME ONE Stop: 05/22/20 13:01 Last Admin: 05/22/20 13:45 Dose: 40 meq Documented by: Propofol (Diprivan 20 Ml) Confirm Administered Dose 200 mg .ROUTE .STK-MED ONE Stop: 05/20/20 09:33 Sodium Chloride (Saline Flush) 10 ml FLUSH ONETIME PRN PRN Reason: PER RADIOLOGY PROTOCOL Last Admin: 05/19/20 12:25 Dose: 10 ml Documented by: - Exam Quality Assessment: Reports: DVT Prophylaxis General: Reports: Alert, Oriented, Cooperative, Mild Distress Lungs: Reports: Clear to Auscultation, Normal Respiratory Effort Cardiovascular: Reports: Regular Rate, Regular Rhythm, No Murmurs GI/Abdominal Exam: Soft, Non-Tender, No Organomegaly, No Distention Extremities: Other (Surgical dressing in place right foot, wound was inspected earlier today by Dr. Lora)
== END 2020-05-24 16:36 | disposition home or self-care (01) | DRG 872 ==
LOC: JP.MS 16:45
PROVIDERS: ADMIT Internal Medicine; ATTEND Hospitalist
PROC: 0H9MXZZ Drainage of Right Foot Skin, External Approach (ICD-10-PCS; principal; 2020-05-17)
PROC: 0H9MXZZ Drainage of Right Foot Skin, External Approach (ICD-10-PCS; 2020-05-19)
PROC: 0DB98ZX Excision of Duodenum, Via Natural or Artificial Opening Endoscopic, Diagnostic (ICD-10-PCS; 2020-05-20)
PROC: 0DB38ZX Excision of Lower Esophagus, Via Natural or Artificial Opening Endoscopic, Diagnostic (ICD-10-PCS; 2020-05-20)
DX: A41.9 Sepsis, unspecified organism (principal); L03.115 Cellulitis of right lower limb; I48.20 Chronic atrial fibrillation, unspecified; B37.81 Candidal esophagitis; E11.42 Type 2 diabetes mellitus with diabetic polyneuropathy; E11.65 Type 2 diabetes mellitus with hyperglycemia; B95.61 Methicillin susceptible Staphylococcus aureus infection as the cause of diseases classified elsewhere; B95.5 Unspecified streptococcus as the cause of diseases classified elsewhere; Z88.0 Allergy status to penicillin; Z88.2 Allergy status to sulfonamides; Z79.84 Long term (current) use of oral hypoglycemic drugs; Z79.899 Other long term (current) drug therapy; Z87.891 Personal history of nicotine dependence
CPT/HCPCS: 36415; 51798; 73720-RT; 74019; 74177; 74177-26; 80048; 80053; 80202; 82962; 83036; 85025; 85027; 87070; 87077; 87186; 87205; 88305; 88312; 88342; 93922; 97162-GP; 97530-GP; 99222-AI; 99231; 99232; 99233; 99238; A9270-GY; A9579; C1751; J0696; J0713; J1170; J1450; J1815; J1815-GY; J2001; J2060; J2405; J2704; J3010; J3370; J3490; J7030; J7050; J7120; Q9967

== ENCOUNTER 2020-08-24 15:08 | Emergency (ER) | payer MEDICARE, BC ==
--- NOTE | 2020-08-24 16:27 | EDM.PDOC ---
ED HPI GENERAL MEDICAL PROBLEM - General Chief Complaint: Wound Recheck Stated Complaint: FEVER Time Seen by Provider: 08/24/20 15:35 Source of Information: Reports: Patient, Family, Provider History Limitations: Reports: No Limitations - History of Present Illness INITIAL COMMENTS - FREE TEXT/NARRATIVE: 79-year-old male with a chronic right foot infection, had his second toe removed and has been on IV antibiotics for the last several weeks as well as oral levofloxacin. He had a sutures removed from the surgery and a debridement of tissue 1 week ago. He showed up to the clinic today for his IV infusion of daptomycin, had a temperature of 101.3 so they called the infectious disease specialist who encouraged them to send him to the emergency room for blood cultures and evaluation. He did not receive his antibiotic. When he arrived to the emergency room, his temperature was 100.0, he felt fine, and his thought his wound looked good as she has been changing his dressings on a daily basis. He felt a little more tired than usual but he been out shoveling snow for several hours prior to coming in. Onset: Unknown/Unsure Location: Reports: Lower Extremity, Right Associated Symptoms: Reports: Fever/Chills. Denies: Confusion, Chest Pain, Cough, Malaise, Nausea/Vomiting, Shortness of Breath, Weakness - Related Data Allergies Allergy/AdvReac Type Severity Reaction Status Date / Time Penicillins Allergy Itching Verified 08/24/20 15:24 Sulfa (Sulfonamide Allergy Itching Verified 08/24/20 15:24 Antibiotics) Home Meds: Home Meds Amitriptyline [Elavil] 25 mg PO BEDTIME 05/16/20 [History] Apixaban [Eliquis] 5 mg PO BID 05/16/20 [History] Red Yeast Rice 1,200 mg PO BID 05/16/20 [History] lisinopriL [Lisinopril] 10 mg PO BEDTIME 05/16/20 [History] metFORMIN [Glucophage XR] 1,000 mg PO BID 05/16/20 [History] Lactobacillus Rhamnosus GG [Culturelle] 1 cap PO BID #60 cap 05/24/20 [Rx] *Daptomycin 1 dose IV DAILY 08/24/20 [History] Hydrocodone/Acetaminophen [Hydrocodon-Acetaminophn 10-325] 1 tab PO ASDIRECTED 08/24/20 [History] Levofloxacin 750 mg PO DAILY 08/24/20 [History] Past Medical History Cardiovascular History: Reports: Afib Respiratory History: Reports: Sleep Apnea Genitourinary History: Reports: Prostate Disorder Musculoskeletal History: Reports: Amputation, Fracture, Other (See Below) Other Musculoskeletal History: osteomyelitis, amputated toe Neurological History: Reports: Neuropathy, Diabetic Endocrine/Metabolic History: Reports: Diabetes, Type II Hematologic History: Reports: Anticoagulation Therapy Dermatologic History: Reports: Cellulitis - Past Surgical History HEENT Surgical History: Reports: Naso-Sinus Surgery Cardiovascular Surgical History: Reports: Cardiac Ablation GI Surgical History: Reports: Hernia, Inguinal Male Surgical History: Reports: Prostate Biopsy Musculoskeletal Surgical History: Reports: Knee Replacement Social & Family History - Family History Family Medical History: No Pertinent Family History - Tobacco Use Tobacco Use Status *Q: Former Tobacco User Used Tobacco, but Quit: Yes Month/Year Tobacco Last Used: 1971 - Caffeine Use Caffeine Use: Reports: Soda - Recreational Drug Use Recreational Drug Use: No ED ROS GENERAL - Review of Systems Review Of Systems: See Below Constitutional: Reports: Fever. Denies: Malaise HEENT: Reports: Other (Fairly hard of hearing) Respiratory: Denies: Shortness of Breath Cardiovascular: Denies: Chest Pain GI/Abdominal: Denies: Nausea, Vomiting Skin: Reports: Other (Open wound on the right foot with some surrounding erythema) Neurological: Reports: Other (Significant lower extremity neuropathy due to diabetes) ED EXAM, GENERAL - Physical Exam Exam: See Below Exam Limited By: No Limitations General Appearance: Alert, No Apparent Distress Respiratory/Chest: No Respiratory Distress, Lungs Clear Cardiovascular: Regular Rate, Rhythm. No: Tachycardia GI/Abdominal: Soft, Non-Tender Extremities: Other (Right foot was undressed and the wound examined. It was dry, clean, was a slight amount of surrounding erythema.) Neurological: Alert, Oriented Course - Vital Signs Last Recorded V/S: Last Vital Signs Temp 100.8 F H 08/24/20 16:38 Pulse 99 08/24/20 15:29 Resp 16 08/24/20 15:29 BP 140/73 08/24/20 15:29 Pulse Ox 93 L 08/24/20 15:29 - Orders/Labs/Meds Labs: Laboratory Tests 08/24/20 08/24/20 Range/Units 14:04 14:04 WBC 13.1 H (4.5-11.0) K/uL RBC 4.52 (4.30-5.90) M/uL Hgb 12.4 (12.0-15.0) g/dL Hct 39.1 L (40.0-54.0) % MCV 87 (80-98) fL MCH 27 (27-31) pg MCHC 32 (32-36) % Plt Count 181 (150-400) K/uL Neut % (Auto) 81 H (36-66) % Lymph % (Auto) 8 L (24-44) % Dunn % (Auto) 8 H (2-6) % Eos % (Auto) 3 (2-4) % Baso % (Auto) 0 (0-1) % C-Reactive Protein 9.75 H (0.0-0.3) mg/dL Meds: Medications Discontinued Medications Generic Name Dose Route Start Last Admin Trade Name Freq PRN Reason Stop Dose Admin Daptomycin 550 mg/ Sodium 11 mls @ 330 mls/hr 08/24/20 16:30 08/24/20 16:17 Chloride IV 08/24/20 16:31 330 mls/hr ONETIME ONE Administration - Re-Assessments/Exams Free Text/Narrative Re-Assessment/Exam: 08/24/20 16:27 Blood cultures x2 were drawn, as well as a CRP and CBC. We received the IV daptomycin from the clinic and gave it to the patient as scheduled. 08/24/20 16:49 CRP is 9.75, white count 13,100. Previous white counts were similar higher to this level, no other CRPs available for compare. Patient's temperature was rechecked prior to discharge and was 100.8. He had no symptoms and felt fine, he wanted to go home. He will return if he becomes symptomatic with rigors or nausea or vomiting, otherwise recheck tomorrow when he comes in for his IV the petery. I attempted to contact Dr. Rojas with an update but he was not available. Departure - Departure Time of Disposition: 17:04 Disposition: Home, Self-Care 01 Clinical Impression: Cellulitis of foot, right - Discharge Information Instructions: Wound Infection, [id number] Referrals: Fernie Sahni DPM [Primary Care Provider] - Forms: ED Department Discharge Care Plan Goals: Continue your current wound treatments and return tomorrow for therapy as scheduled. You can return sooner if you become very uncomfortable with shaking chills, nausea or vomiting or confusion. Sepsis Event Note (ED) - Evaluation Sepsis Screening Result: Possible Sepsis Risk
[2020-08-24] MEDS ORDERED: SODIUM CHLORIDE 0.9% IV ONE (16:30)
[2020-08-24] MEDS ORDERED: DAPTOMYCIN IV ONE (16:30)
== END 2020-08-24 17:04 | disposition home or self-care (01) ==
LOC: JP.ED 15:08
DX: L03.115 Cellulitis of right lower limb (principal); I48.91 Unspecified atrial fibrillation; E11.40 Type 2 diabetes mellitus with diabetic neuropathy, unspecified; Z88.0 Allergy status to penicillin; Z88.2 Allergy status to sulfonamides; Z79.01 Long term (current) use of anticoagulants; Z79.84 Long term (current) use of oral hypoglycemic drugs; Z79.899 Other long term (current) drug therapy; Z87.891 Personal history of nicotine dependence
CPT/HCPCS: 36415; 85025; 86140; 87040; 96374; 99283; 99284; J0878